=== PATIENT | female | born 1960 | race Caucasian/White ===

== ENCOUNTER → 2019-01-18 10:22 | Outpatient (CLI) | payer BC, SELFPAY ==
[2018-12-28 10:51] VITALS: BMI 33.3
--- NOTE | 2019-01-18 10:23 | NM_ITS ---
CLINICAL: 88-year-old female with reported history of carcinoma of the breast. WHOLE BODY 99m Tc MDP RADIONUCLIDE BONE SCINTIGRAPHY COMPARISON: None available FINDINGS: Following the intravenous administration of 26.4 mCi of 99m Tc MDP, whole body bone images reveal: 1. Increased radiopharmaceutical concentration is identified in the 12th thoracic vertebra posteriorly on the right, fourth thoracic vertebra posteriorly on the left and right, glenohumeral compartments of both shoulders, the medial femoral patellofemoral compartments of both knees, both wrists, medial tibial compartment of the right knee, ankles bilaterally, right-left mid and forefoot. 2. The remaining skeletal structures are scintigraphically unremarkable with normal-appearing renal images and urinary bladder activity identified. An increase in tracer distribution is noted in the bilateral maxilla most consistent with periodontal disease and/or periostitis. NM/Bone Scan Whole Body IMPRESSION: 1. The increase in radiopharmaceutical concentration defined in the thoracic spine, bilateral shoulders, right and left knees, wrist articulations bilaterally, the right knee, right-left ankles, the bilateral mid and forefoot is commensurate with degenerative arthritis. 2. There is no definitive scintigraphic evidence of skeletal metastatic disease on the current examination. Electronically Signed: Isak Shaw DO at 10:49 EDT Tel , Service support ,
== END ==
PROVIDERS: Family Provider Family Medicine; PCP Family Medicine; Referring Provider Internal Medicine Medical Oncology; Visit Provider Internal Medicine Medical Oncology
DX: Z85.3 Personal history of malignant neoplasm of breast (principal)
CPT/HCPCS: 78306

== ENCOUNTER 2020-07-12 14:00 | Outpatient (RCR) | payer BC, SELFPAY ==
[2019-07-27 13:32] VITALS: BMI 33.3
== END 2020-07-15 23:59 ==
LOC: DC 14:00
PROVIDERS: PCP Family Medicine; Visit Provider Family Medicine
DX: Z71.3 Dietary counseling and surveillance (principal); E11.9 Type 2 diabetes mellitus without complications
CPT/HCPCS: G0108

== ENCOUNTER 2020-08-08 14:30 | Outpatient (RCR) | payer BC, SELFPAY ==
[2019-07-27 13:32] VITALS: BMI 33.3
== END 2020-08-14 23:59 ==
LOC: DC 14:30
PROVIDERS: PCP Family Medicine; Visit Provider Family Medicine
DX: Z71.3 Dietary counseling and surveillance (principal); E11.9 Type 2 diabetes mellitus without complications
CPT/HCPCS: 97802; 97803; G0108

== ENCOUNTER 2020-08-17 09:30 | Outpatient (RCR) | payer BC, SELFPAY ==
[2019-07-27 13:32] VITALS: BMI 33.3
== END 2020-09-14 23:59 ==
LOC: DC 09:30
PROVIDERS: PCP Family Medicine; Visit Provider Family Medicine
DX: Z71.3 Dietary counseling and surveillance (principal); E11.9 Type 2 diabetes mellitus without complications
CPT/HCPCS: G0109

== ENCOUNTER 2020-09-28 13:30 | Outpatient (RCR) | payer BC, SELFPAY ==
[2019-07-27 13:32] VITALS: BMI 33.3
== END 2020-10-15 23:59 ==
LOC: DC 13:30
PROVIDERS: PCP Family Medicine; Visit Provider Family Medicine
DX: Z71.3 Dietary counseling and surveillance (principal); E11.9 Type 2 diabetes mellitus without complications
CPT/HCPCS: G0109

== ENCOUNTER 2020-11-16 14:44 | Outpatient (RCR) | payer BC, SELFPAY ==
[2019-07-27 13:32] VITALS: BMI 33.3
== END 2020-12-13 23:59 ==
LOC: DC 14:44
PROVIDERS: PCP Family Medicine; Visit Provider Family Medicine
DX: Z71.3 Dietary counseling and surveillance (principal); E11.9 Type 2 diabetes mellitus without complications
CPT/HCPCS: G0109

== ENCOUNTER 2021-02-15 10:51 | Outpatient (RCR) | payer BC, SELFPAY ==
[2019-07-27 13:32] VITALS: BMI 33.3
== END 2021-02-15 23:59 | disposition home or self-care (01) ==
LOC: DC 10:51
PROVIDERS: PCP Family Medicine; Visit Provider Family Medicine
DX: E11.9 Type 2 diabetes mellitus without complications (principal)
CPT/HCPCS: G0109

== ENCOUNTER → 2021-04-06 09:17 | Outpatient (CLI) | payer BC, SELFPAY ==
[2019-07-27 13:32] VITALS: BMI 33.3
[2021-04-06 12:26] LABS: Erythrocyte Sedimentation Rate 3 mm/hr (0-30)
[2021-04-06 12:39] LABS: CRP < 2.90 mg/L (0.0-3.0); Rheumatoid Factor < 10.0 IU/mL (<15)
[2021-04-08 08:22] LABS: ANTINUCLEAR ANTIBODIES DIRECT Positive (Negative)
[2021-04-09 07:24] LABS: CCP IgG Antibodies 4 units (0-19)
== END ==
PROVIDERS: PCP Family Medicine; Referring Provider Family Medicine; Visit Provider Family Medicine
DX: E11.9 Type 2 diabetes mellitus without complications (principal); M13.0 Polyarthritis, unspecified
CPT/HCPCS: 36415; 85652; 86038; 86140; 86200; 86431

== ENCOUNTER → 2021-04-20 09:39 | Outpatient (CLI) | payer BC, SELFPAY ==
[2019-07-27 13:32] VITALS: BMI 33.3
[2021-04-20 10:43] LABS: EXAGEN MAILED SPECIMEN
[2021-04-20 12:02] LABS: Color, Urine Yellow (Yellow); Glucose, Dipstick Normal (Normal); Ketone-Dipstick Negative (Negative); Leukocyte Esterase-Dipstick Negative /ul (Negative); Nitrite-Dipstick Negative (Negative); Occult Blood-Urine Negative /ul (Negative); Protein-Dipstick Negative (Negative); Urine Bilirubin Dipstick Negative (Negative); Urine Clarity Clear (Clear); Urine Urobilinogen Normal (Normal)
[2021-04-20 12:03] LABS: Absolute Lymphocyte Count 0.81 X10^3/uL (0.83-4.51); Absolute Neutrophil Count 2.6 X10^3/uL (2.0-7.7); Basophil# 0.05 X10^3/uL; Basophil% 1.3 % (0-1); Eosinophil# 0.09 X10^3/uL; Eosinophils% 2.3 % (0-5); Hematocrit 40.8 % (37-47); Hemoglobin 12.9 g/dL (12.0-15.0); Lymphocyte # 0.81 X10^3/ul (0.83-4.51); Lymphocyte % 20.6 % (19-41); Mean Corp Hgb Conc 31.6 g/dL (32-36); Mean Corpuscular Hgb 29.3 pg (27.0-32.0); Mean Corpuscular Volume 92.5 fL (81-99); Mean Platelet Vol. 11.5 fl (6.2-12.0); Monocyte# 0.35 X10^3/uL; Monocyte% 8.9 % (0-10); NRBC Flagged by Analyzer 0 % (0-5); Neutrophil # 2.63 X10^3/uL (2.7-7.7); Neutrophil % 66.9 % (47-70); Platelet Count 184 K/mm3 (150-450); RBC Distribution Width CV 13.8 % (11.6-14.6); RBC Distribution Width SD 47.1 fl (35.1-43.9); Red Blood Count 4.41 M/mm3 (4.2-5.4); White Blood Count 3.9 K/mm3 (4.4-11.0)
[2021-04-20 12:09] LABS: Partial Thromboplast Time 29.1 Seconds (24.1-36.2); Prothrombin Time (Protime)PT. 12.6 SECONDS (11.7-14.9)
[2021-04-20 12:17] LABS: Protein, Urine (Random) 6.9 mg/dL (<11.9); Protein:Creat Ratio 100 mg/g CRE (0-200)
[2021-04-20 12:26] LABS: ALB/GLOB Ratio 1.3 RATIO (0.9-2.4); AST(SGOT) 18 U/L (15-37); Alanine Aminotransfer ALT/SGPT 29 U/L (13-56); Alkaline Phosphatase 82 U/L (45-117); Anion Gap 5 (5-15); BUN 18 mg/dL (7-18); Calcium,Total 9.6 mg/dL (8.5-10.1); Chloride 109 mmol/L (98-107); Creatinine, Serum 0.75 mg/dL (0.55-1.02); EST Glomerular Filtration Rate 84 mL/min (>60); Est Glom Filt Rate - Afr Amer 101 mL/min (>60); Globulin 3.1 g/dL (2.2-4.2); Glucose 100 mg/dL (74-106); Potassium 4.2 mmol/L (3.5-5.1); Protein, Total 7.1 g/dL (6.4-8.2); Sodium Level 141 mmol/L (136-145)
[2021-04-22 07:42] LABS: Thrombin Time 17.3 sec (0.0-23.0)
[2021-04-22 14:07] LABS: Dilute Prothrombin Time (dPT) 40.6 sec (0.0-55.0); Dilute Russell Viper Venom 43.4 sec (0.0-47.0); Hexagonal Phase Phospholipid 0 sec (0-11); PTT-LA 32.2 sec (0.0-51.9); Thrombin Time 17.9 sec (0.0-23.0); dPT Confirm Ratio 1.19 Ratio (0.00-1.40)
[2021-04-22 15:02] LABS: Interpretation Comment: (.)
== END ==
PROVIDERS: PCP Family Medicine; Referring Provider Internal Medicine Rheumatology; Visit Provider Internal Medicine Rheumatology
DX: M06.4 Inflammatory polyarthropathy (principal); R76.8 Other specified abnormal immunological findings in serum; M19.041 Primary osteoarthritis, right hand; E11.9 Type 2 diabetes mellitus without complications; F41.9 Anxiety disorder, unspecified; M81.0 Age-related osteoporosis without current pathological fracture; E03.9 Hypothyroidism, unspecified; E78.5 Hyperlipidemia, unspecified; Z85.3 Personal history of malignant neoplasm of breast
CPT/HCPCS: 36415; 80053; 81002; 82570; 84156; 85025; 85598; 85610; 85670; 85730

== ENCOUNTER → 2021-07-30 08:27 | Outpatient (CLI) | payer BC, SELFPAY ==
[2021-07-30 10:06] LABS: Absolute Neutrophil Count 2.5 X10^3/uL (2.0-7.7); Basophil# 0.06 X10^3/uL; Basophil% 1.6 % (0-1); Eosinophil# 0.11 X10^3/uL; Eosinophils% 2.9 % (0-5); Hematocrit 39.7 % (37-47); Lymphocyte % 20.9 % (19-41); Mean Corp Hgb Conc 32.7 g/dL (32-36); Mean Corpuscular Hgb 29.4 pg (27.0-32.0); Mean Corpuscular Volume 89.8 fL (81-99); Mean Platelet Vol. 11.1 fl (6.2-12.0); Monocyte# 0.41 X10^3/uL; Monocyte% 10.7 % (0-10); NRBC Flagged by Analyzer 0 % (0-5); Neutrophil # 2.45 X10^3/uL (2.7-7.7); Neutrophil % 63.9 % (47-70); Platelet Count 177 K/mm3 (150-450); RBC Distribution Width SD 46.3 fl (35.1-43.9); Red Blood Count 4.42 M/mm3 (4.2-5.4); White Blood Count 3.8 K/mm3 (4.4-11.0)
[2021-07-30 10:23] LABS: Hemoglobin A1c 5.8 % (3.8-5.6)
[2021-07-30 10:39] LABS: ALB/GLOB Ratio 1.1 RATIO (0.9-2.4); AST(SGOT) 15 U/L (15-37); Alanine Aminotransfer ALT/SGPT 25 U/L (13-56); Albumin, Serum 3.7 g/dL (3.2-5.0); Alkaline Phosphatase 65 U/L (45-117); Anion Gap 5 (5-15); BUN 16 mg/dL (7-18); BUN/Creat Ratio 16.2 RATIO (10-20); Calcium,Total 9.4 mg/dL (8.5-10.1); Chloride 108 mmol/L (98-107); Cholesterol 128 mg/dL (200); Creatinine, Serum 0.99 mg/dL (0.55-1.02); EST Glomerular Filtration Rate 61 mL/min (>60); Est Glom Filt Rate - Afr Amer 74 mL/min (>60); Globulin 3.3 g/dL (2.2-4.2); Glucose 117 mg/dL (74-106); High Density Lipoprotein 53 mg/dL; Potassium 3.9 mmol/L (3.5-5.1); Sodium Level 140 mmol/L (136-145); T4 Free Direct 1.24 ng/dL (0.76-1.46); Thyroid Stim Hormone (TSH) 0.45 uIU/mL (0.358-3.74); Triglycerides 72 mg/dL; Very Low Density Lipoprotein 14 mg/dL (5-40)
== END ==
PROVIDERS: PCP Family Medicine; Referring Provider Family Medicine; Visit Provider Family Medicine
DX: E11.9 Type 2 diabetes mellitus without complications (principal); E03.9 Hypothyroidism, unspecified; E78.5 Hyperlipidemia, unspecified; M06.4 Inflammatory polyarthropathy; Z79.899 Other long term (current) drug therapy; R76.8 Other specified abnormal immunological findings in serum; M19.041 Primary osteoarthritis, right hand; F41.9 Anxiety disorder, unspecified; M81.0 Age-related osteoporosis without current pathological fracture; Z85.3 Personal history of malignant neoplasm of breast
CPT/HCPCS: 36415; 80053; 80061; 83036; 84439; 84443; 85025

== ENCOUNTER 2021-10-31 13:12 | Outpatient (CLI) | payer BC, SELFPAY ==
[2021-10-31 15:04] LABS: Absolute Lymphocyte Count 0.94 X10^3/uL (0.83-4.51); Absolute Neutrophil Count 2.7 X10^3/uL (2.0-7.7); Basophil# 0.06 X10^3/uL; Basophil% 1.4 % (0-1); Eosinophil# 0.08 X10^3/uL; Eosinophils% 1.9 % (0-5); Hematocrit 40.3 % (37-47); Hemoglobin 13.3 g/dL (12.0-15.0); Lymphocyte # 0.94 X10^3/ul (0.83-4.51); Lymphocyte % 22.4 % (19-41); Mean Corpuscular Hgb 30.6 pg (27.0-32.0); Mean Corpuscular Volume 92.6 fL (81-99); Mean Platelet Vol. 11.3 fl (6.2-12.0); Monocyte# 0.38 X10^3/uL; NRBC Flagged by Analyzer 0 % (0-5); Neutrophil # 2.73 X10^3/uL (2.7-7.7); Neutrophil % 65.1 % (47-70); Platelet Count 194 K/mm3 (150-450); RBC Distribution Width CV 13.4 % (11.6-14.6); RBC Distribution Width SD 46.5 fl (35.1-43.9); Red Blood Count 4.35 M/mm3 (4.2-5.4); White Blood Count 4.2 K/mm3 (4.4-11.0)
[2021-10-31 15:34] LABS: ALB/GLOB Ratio 1.2 RATIO (0.9-2.4); AST(SGOT) 18 U/L (15-37); Alanine Aminotransfer ALT/SGPT 24 U/L (13-56); Albumin, Serum 3.8 g/dL (3.2-5.0); Alkaline Phosphatase 74 U/L (45-117); Anion Gap 6 (5-15); BUN 18 mg/dL (7-18); Calcium,Total 9.5 mg/dL (8.5-10.1); Chloride 107 mmol/L (98-107); EST Glomerular Filtration Rate 68 mL/min (>60); Est Glom Filt Rate - Afr Amer 82 mL/min (>60); Globulin 3.1 g/dL (2.2-4.2); Glucose 118 mg/dL (74-106); Potassium 3.9 mmol/L (3.5-5.1); Protein, Total 6.9 g/dL (6.4-8.2); Sodium Level 139 mmol/L (136-145)
== END 2021-10-31 23:59 | disposition home or self-care (01) ==
LOC: MTLAB 13:14
PROVIDERS: PCP Family Medicine; Referring Provider Internal Medicine Rheumatology; Visit Provider Internal Medicine Rheumatology
DX: M06.4 Inflammatory polyarthropathy (principal); E11.9 Type 2 diabetes mellitus without complications; Z79.899 Other long term (current) drug therapy; R76.8 Other specified abnormal immunological findings in serum; M19.041 Primary osteoarthritis, right hand; F41.9 Anxiety disorder, unspecified; M81.0 Age-related osteoporosis without current pathological fracture; E03.9 Hypothyroidism, unspecified; E78.5 Hyperlipidemia, unspecified; Z85.3 Personal history of malignant neoplasm of breast
CPT/HCPCS: 36415; 80053; 85025

== ENCOUNTER → 2022-05-01 | Outpatient (CLI) | payer BC, SELFPAY ==
[2022-05-01 15:30] LABS: Absolute Lymphocyte Count 0.77 X10^3/uL (0.83-4.51); Absolute Neutrophil Count 2.2 X10^3/uL (2.0-7.7); Basophil# 0.04 X10^3/uL; Basophil% 1.2 % (0-1); Eosinophils% 2.9 % (0-5); Hematocrit 38.4 % (37-47); Hemoglobin 12.4 g/dL (12.0-15.0); Lymphocyte # 0.77 X10^3/ul (0.83-4.51); Lymphocyte % 22.3 % (19-41); Mean Corp Hgb Conc 32.3 g/dL (32-36); Mean Corpuscular Volume 89.7 fL (81-99); Mean Platelet Vol. 12.7 fl (6.2-12.0); Monocyte% 8.7 % (0-10); NRBC Flagged by Analyzer 0 % (0-5); Neutrophil # 2.23 X10^3/uL (2.7-7.7); Neutrophil % 64.6 % (47-70); POSITIVE COUNT YES; Platelet Count 112 K/mm3 (150-450); RBC Distribution Width CV 13.3 % (11.6-14.6); RBC Distribution Width SD 43.8 fl (35.1-43.9); Red Blood Count 4.28 M/mm3 (4.2-5.4); White Blood Count 3.5 K/mm3 (4.4-11.0)
[2022-05-01 15:33] LABS: Differential Indicated SCAN CRITERIA MET
[2022-05-01 15:40] LABS: ALB/GLOB Ratio 1.2 RATIO (0.9-2.4); AST(SGOT) 18 U/L (15-37); Alanine Aminotransfer ALT/SGPT 22 U/L (13-56); Albumin, Serum 3.7 g/dL (3.2-5.0); Alkaline Phosphatase 72 U/L (45-117); Anion Gap 6 (5-15); BUN 19 mg/dL (7-18); BUN/Creat Ratio 20.3 RATIO (10-20); Calcium,Total 9.5 mg/dL (8.5-10.1); Chloride 109 mmol/L (98-107); Creatinine, Serum 0.94 mg/dL (0.55-1.02); EST Glomerular Filtration Rate 65 mL/min (>60); Est Glom Filt Rate - Afr Amer 78 mL/min (>60); Globulin 3.1 g/dL (2.2-4.2); Glucose 113 mg/dL (74-106); Potassium 3.9 mmol/L (3.5-5.1); Protein, Total 6.8 g/dL (6.4-8.2); Sodium Level 140 mmol/L (136-145)
[2022-05-01 15:59] LABS: Differential Comment SCANNED
== END | disposition home or self-care (01) ==
LOC: MTLAB 13:21
PROVIDERS: PCP Family Medicine; Referring Provider Internal Medicine Rheumatology; Visit Provider Internal Medicine Rheumatology
DX: M06.4 Inflammatory polyarthropathy (principal); E11.9 Type 2 diabetes mellitus without complications; Z79.899 Other long term (current) drug therapy; R76.8 Other specified abnormal immunological findings in serum; M19.041 Primary osteoarthritis, right hand; F41.9 Anxiety disorder, unspecified; M81.0 Age-related osteoporosis without current pathological fracture; E03.9 Hypothyroidism, unspecified; E78.5 Hyperlipidemia, unspecified; Z85.3 Personal history of malignant neoplasm of breast
CPT/HCPCS: 36415; 80053; 85025

== ENCOUNTER → 2022-10-23 | Outpatient (CLI) | payer BC, SELFPAY ==
[2022-10-23 10:12] LABS: Absolute Lymphocyte Count 0.85 X10^3/uL (0.83-4.51); Absolute Neutrophil Count 2.3 X10^3/uL (2.0-7.7); Basophil# 0.07 X10^3/uL; Basophil% 1.8 % (0-1); Eosinophil# 0.22 X10^3/uL; Eosinophils% 5.7 % (0-5); Hematocrit 40.7 % (37-47); Hemoglobin 12.7 g/dL (12.0-15.0); Lymphocyte # 0.85 X10^3/ul (0.83-4.51); Lymphocyte % 21.9 % (19-41); Mean Corp Hgb Conc 31.2 g/dL (32-36); Mean Corpuscular Hgb 28.7 pg (27.0-32.0); Mean Corpuscular Volume 91.9 fL (81-99); Mean Platelet Vol. 11.1 fl (6.2-12.0); Monocyte# 0.44 X10^3/uL; Monocyte% 11.3 % (0-10); NRBC Flagged by Analyzer 0 % (0-5); Platelet Count 206 K/mm3 (150-450); RBC Distribution Width CV 14.1 % (11.6-14.6); RBC Distribution Width SD 48.1 fl (35.1-43.9); Red Blood Count 4.43 M/mm3 (4.2-5.4); White Blood Count 3.9 K/mm3 (4.4-11.0)
[2022-10-23 10:36] LABS: Microalbumin,Random Urine 16.7 mg/L (NO RANGE EST.); Microalbumin:Creatinine Ratio 18.5 mg/g CRE (<30 mg/g CRE)
[2022-10-23 10:52] LABS: ALB/GLOB Ratio 1.2 RATIO (0.9-2.4); AST(SGOT) 15 U/L (15-37); Alanine Aminotransfer ALT/SGPT 22 U/L (13-56); Albumin, Serum 3.7 g/dL (3.2-5.0); Alkaline Phosphatase 88 U/L (45-117); Anion Gap 7 (5-15); BUN 17 mg/dL (7-18); BUN/Creat Ratio 18.9 RATIO (10-20); Calcium,Total 9.5 mg/dL (8.5-10.1); Chloride 112 mmol/L (98-107); Cholesterol 141 mg/dL (200); EST Glomerular Filtration Rate 68 mL/min (>60); Est Glom Filt Rate - Afr Amer 82 mL/min (>60); Globulin 3.2 g/dL (2.2-4.2); Glucose 147 mg/dL (74-106); High Density Lipoprotein 56 mg/dL; Potassium 3.9 mmol/L (3.5-5.1); Protein, Total 6.9 g/dL (6.4-8.2); Sodium Level 144 mmol/L (136-145); T4 Free Direct 1.37 ng/dL (0.76-1.46); Thyroid Stim Hormone (TSH) 0.48 uIU/mL (0.358-3.74); Triglycerides 123 mg/dL; Very Low Density Lipoprotein 25 mg/dL (5-40)
== END | disposition home or self-care (01) ==
PROVIDERS: PCP Family Medicine; Referring Provider Internal Medicine Rheumatology; Visit Provider Internal Medicine Rheumatology
DX: M06.4 Inflammatory polyarthropathy (principal); E11.9 Type 2 diabetes mellitus without complications; R76.8 Other specified abnormal immunological findings in serum; M19.041 Primary osteoarthritis, right hand; F32.A Depression, unspecified; M19.042 Primary osteoarthritis, left hand; F41.9 Anxiety disorder, unspecified; M81.0 Age-related osteoporosis without current pathological fracture; E03.9 Hypothyroidism, unspecified; E78.5 Hyperlipidemia, unspecified; Z79.899 Other long term (current) drug therapy; Z85.3 Personal history of malignant neoplasm of breast
CPT/HCPCS: 36415; 80053; 80061; 82043; 82570; 84439; 84443; 85025

== ENCOUNTER → 2022-12-16 | Outpatient (CLI) | payer BC, SELFPAY ==
--- NOTE | 2022-12-16 13:05 | RAD_ITS ---
EXAM: XR RIGHT HAND COMPLETE, 3 OR MORE VIEWS CLINICAL INDICATION: PAIN PAIN TECHNIQUE: Frontal, lateral and oblique views of the right hand. This report was created using [employer] report generation technology. COMPARISON: X-ray left hand 12/16/2022. FINDINGS: BONES/JOINTS: There is degenerative arthrosis of multiple interphalangeal joints, with most severe involvement of the second DIP joint. There is mild degenerative arthrosis of the first carpometacarpal joint as well as the navicular-multangular joints. No acute fracture. No subluxation. Normal alignment. No sclerotic or destructive changes observed. SOFT TISSUES: Unremarkable. No soft tissue swelling or gas. No radiopaque foreign body. RAD/Hand Min 3 Views IMPRESSION: 1. Degenerative changes, as above. 2. No demonstrated fracture, dislocation, or destructive osseous lesion. Electronically Signed: Yung Fisher MD at 7:36 EDT Reading Location ID and State: [facility] / [place] , Service support ,
--- NOTE | 2022-12-16 13:05 | RAD_ITS ---
STUDY: X-RAY - LEFT HAND REASON FOR EXAM: Female, 62 years old. Pain. TECHNIQUE: 3 view(s) of the hand. COMPARISON: None. FINDINGS: Osteopenia. Moderate arthrosis of the radial carpal row. Moderate arthrosis of the first CMC joint. Moderate arthrosis of the MCP and IP joints. Normal soft tissues. RAD/Hand Min 3 Views IMPRESSION: Osteopenia with osteoarthritic changes as described. No acute abnormality, chondrocalcinosis or erosive changes. Electronically Signed: Agusto Rojas, at 9:42 EDT ,
== END | disposition home or self-care (01) ==
PROVIDERS: PCP Family Medicine; Referring Provider Family Medicine; Visit Provider Family Medicine
DX: M06.4 Inflammatory polyarthropathy (principal)
CPT/HCPCS: 73130

== ENCOUNTER → 2022-12-23 | Outpatient (CLI) | payer BC, SELFPAY | END | disposition home or self-care (01) | PROVIDERS: PCP Family Medicine | DX: N39.0 Urinary tract infection, site not specified (principal) | CPT/HCPCS: 87086; 87088; 87186 ==

== ENCOUNTER → 2023-03-28 | Outpatient (CLI) | payer BC, SELFPAY ==
[2023-03-28 16:17] LABS: Absolute Lymphocyte Count 0.55 X10^3/uL (0.83-4.51); Basophil# 0.06 X10^3/uL; Eosinophils% 3.3 % (0-5); Hematocrit 38.3 % (37-47); Hemoglobin 12.1 g/dL (12.0-15.0); Lymphocyte # 0.55 X10^3/ul (0.83-4.51); Lymphocyte % 18.4 % (19-41); Mean Corp Hgb Conc 31.6 g/dL (32-36); Mean Corpuscular Hgb 28.8 pg (27.0-32.0); Mean Corpuscular Volume 91.2 fL (81-99); Mean Platelet Vol. 11.4 fl (6.2-12.0); Monocyte# 0.27 X10^3/uL; NRBC Flagged by Analyzer 0 % (0-5); POSITIVE DIFFERENTIAL YES; Platelet Count 207 K/mm3 (150-450); RBC Distribution Width CV 13.7 % (11.6-14.6); RBC Distribution Width SD 46.4 fl (35.1-43.9)
[2023-03-28 16:22] LABS: Differential Indicated SCAN CRITERIA MET
[2023-03-28 16:44] LABS: Differential Comment SCANNED
[2023-03-28 16:58] LABS: ALB/GLOB Ratio 1.1 RATIO (0.9-2.4); AST(SGOT) 18 U/L (15-37); Alanine Aminotransfer ALT/SGPT 24 U/L (13-56); Albumin, Serum 3.6 g/dL (3.2-5.0); Alkaline Phosphatase 101 U/L (45-117); Anion Gap 6 (5-15); BUN 19 mg/dL (7-18); BUN/Creat Ratio 19.8 RATIO (10-20); Calcium,Total 9.7 mg/dL (8.5-10.1); Chloride 110 mmol/L (98-107); Creatinine, Serum 0.96 mg/dL (0.55-1.02); EST Glomerular Filtration Rate 63 mL/min (>60); Est Glom Filt Rate - Afr Amer 76 mL/min (>60); Globulin 3.4 g/dL (2.2-4.2); Glucose 103 mg/dL (74-106); Potassium 3.9 mmol/L (3.5-5.1); Sodium Level 141 mmol/L (136-145)
[2023-04-01 12:07] LABS: Pathologist Review Reviewed
== END | disposition home or self-care (01) ==
LOC: MTLAB 11:09
PROVIDERS: PCP Family Medicine; Referring Provider Internal Medicine Rheumatology; Visit Provider Internal Medicine Rheumatology
DX: Z79.899 Other long term (current) drug therapy (principal); R76.8 Other specified abnormal immunological findings in serum
CPT/HCPCS: 36415; 80053; 85025

== ENCOUNTER 2023-04-27 00:18 | Emergency (ER) | payer BC, SELFPAY ==
[2023-04-27 00:21] VITALS: BP 139/74; PULSE 79; RESP 18; TEMP 38.4; O2SAT 98; BMI 37.5
[2023-04-27 00:23] VITALS: BP 139/76; PULSE 80; RESP 16; TEMP 38.4; O2SAT 98
--- NOTE | 2023-04-27 00:54 | RAD_ITS ---
INDICATION: fever EXAMINATION/TECHNIQUE: X-RAY - XR Chest 1 View AP portable. 1:00 AM COMPARISON: FINDINGS: LINES/DEVICES: None. LUNGS: No consolidation. No pneumothorax. MEDIASTINUM: Unremarkable. CARDIAC SILHOUETTE: Not enlarged. BONES AND SOFT TISSUES: No acute abnormalities. Mild curvature of the spine. RAD/Chest 1 View (Portable) IMPRESSION: No evidence of active intrathoracic disease. Electronically Signed: Debra Erazo MD at 1:58 EDT ,
[2023-04-27] MEDS: Acetaminophen 500 MG Tablet 1000 MG PO (01:19)
[2023-04-27] MEDS: Ondansetron 4 MG/2 ML Vial IV (01:21)
[2023-04-27] MEDS: 0.9% Normal Saline 1,000 ML 999 ML IV (01:21)
[2023-04-27 01:24] LABS: Absolute Neutrophil Count 2.3 X10^3/uL (2.0-7.7); Basophil# 0.02 X10^3/uL; Basophil% 0.8 % (0-1); Eosinophil# 0.03 X10^3/uL; Eosinophils% 1.2 % (0-5); Hematocrit 35.4 % (37-47); Hemoglobin 11.1 g/dL (12.0-15.0); Lymphocyte % 7.9 % (19-41); Mean Corp Hgb Conc 31.4 g/dL (32-36); Mean Corpuscular Hgb 28.2 pg (27.0-32.0); Mean Corpuscular Volume 90.1 fL (81-99); Mean Platelet Vol. 10.5 fl (6.2-12.0); Monocyte# 0.02 X10^3/uL; Monocyte% 0.8 % (0-10); NRBC Flagged by Analyzer 0 % (0-5); Neutrophil # 2.26 X10^3/uL (2.7-7.7); Neutrophil % 88.9 % (47-70); POSITIVE DIFFERENTIAL YES; Platelet Count 185 K/mm3 (150-450); RBC Distribution Width CV 14.1 % (11.6-14.6); Red Blood Count 3.93 M/mm3 (4.2-5.4); White Blood Count 2.5 K/mm3 (4.4-11.0)
[2023-04-27 01:25] LABS: Differential Indicated SCAN CRITERIA MET
[2023-04-27 01:43] LABS: AST(SGOT) 17 U/L (15-37); Alanine Aminotransfer ALT/SGPT 18 U/L (13-56); Albumin, Serum 3.3 g/dL (3.2-5.0); Alkaline Phosphatase 86 U/L (45-117); Anion Gap 7 (5-15); BUN 24 mg/dL (7-18); BUN/Creat Ratio 22.9 RATIO (10-20); Bilirubin, Direct 0.17 mg/dL (0.00-0.30); Calcium,Total 9.3 mg/dL (8.5-10.1); Chloride 107 mmol/L (98-107); Creatinine, Serum 1.05 mg/dL (0.55-1.02); EST Glomerular Filtration Rate 57 mL/min (>60); Est Glom Filt Rate - Afr Amer 68 mL/min (>60); Estimated Creatinine Clearance 46.54 ml/min; Globulin 3.3 g/dL (2.2-4.2); Glucose 184 mg/dL (74-106); Lipase 36 U/L (13-75); Magnesium 1.8 mg/dL (1.6-2.6); Potassium 4.3 mmol/L (3.5-5.1); Protein, Total 6.6 g/dL (6.4-8.2); Sodium Level 138 mmol/L (136-145)
[2023-04-27 02:23] VITALS: BP 125/62; PULSE 82; RESP 18; TEMP 39; O2SAT 96
[2023-04-27] MEDS: Ibuprofen 600 MG Tablet PO (02:29)
[2023-04-27 02:34] LABS: Mucous, Urine 0 SEEN /hpf (<or=2+); Red Blood Cells-Urine 0 SEEN /hpf (0-5); Squamous Epithelial Cells - UA 0 SEEN /hpf (5-10); White Blood Cells 0 SEEN /hpf (0-5)
[2023-04-27 02:35] LABS: Color, Urine Yellow (Yellow); Glucose, Dipstick Normal (Normal); Ketone-Dipstick Negative (Negative); Leukocyte Esterase-Dipstick 25 /ul (Negative); Nitrite-Dipstick Negative (Negative); Occult Blood-Urine 25 /ul (Negative); Protein-Dipstick 15 mg/dl (Negative); Urine Bilirubin Dipstick Negative (Negative); Urine Clarity Clear (Clear); Urine Urobilinogen Normal (Normal)
[2023-04-27 02:41] LABS: Bacteria RARE /hpf (None Seen)
[2023-04-27 03:11] VITALS: BP 123/68; PULSE 79; RESP 18; O2SAT 98
--- NOTE | 2023-04-27 03:11 | EDS_ITS ---
HPI History of Present Illness Chief Complaint: General Illness Narrative Narrative: Patient is a 62-year-old female with past medical history of breast cancer as well as diabetes. She states that she went to bed feeling normal and then awoke with shaking chills to the point where she was shaking the bed. She states however she was awake and alert for this entire time. She states she got very nauseous with this but denies any vomiting. She denies any abdominal pain diarrhea or dysuria. However because of the shaking she was concerned she could have developed a potential seizure and therefore presents for evaluation [facility] Medical History (Updated 04/27/23 @ 06:[address] Van Alexandra, DO) Breast cancer, left Depression Diabetes Hypothyroid Shingles Sjogren syndrome with peripheral nervous system involvement Home Medications acetaminophen 500 mg tablet 500 mg PO Q6H PRN Pain 11/26/18 [History Last Taken Unknown] bupropion HCl 300 mg 24 hr tablet, extended release 300 mg PO DAILY 11/26/18 [History Last Taken Unknown] calcium carb-ergocalciferol (vit D2) 250 mg (625 mg)-125 unit tablet (Oyster Shell Calcium-Vit D2) 1 ea PO DAILY 11/26/18 [History Last Taken Unknown] cetirizine 10 mg tablet (Zyrtec) 10 mg PO DAILY 11/26/18 [History Last Taken Unknown] escitalopram oxalate 10 mg tablet 20 mg PO DAILY 11/26/18 [History Last Taken Un known] fish oil-dha-epa 1,200 mg-144 mg-216 mg capsule 2 ea PO DAILY 11/26/18 [History Last Taken Unknown] levothyroxine 100 mcg tablet (Levo-T) 100 mcg PO DAILY 11/26/18 [History Last Taken Unknown] Fluticasone Otc 50 mcg DAILY 11/30/18 [History Last Taken Unknown] alendronate 70 mg tablet 70 mg PO QWEEK 07/27/19 [History Last Taken Unknown] cholecalciferol (vitamin D3) 25 mcg (1,000 unit) tablet 1,000 unit PO DAILY 07/27/20 [History Last Taken Unknown] losartan 25 mg tablet 25 mg PO DAILY 07/27/20 [History Last Taken Unknown] metformin 500 mg tablet 500 mg PO DAILY 07/27/20 [History Last Taken Unknown] atorvastatin 10 mg tablet 10 mg PO QHS 04/27/23 [History Last Taken Unknown] clobetasol 0.05 % scalp solution 1 applic topical .week 04/27/23 [History Last Taken Unknown] hydroxychloroquine 200 mg tablet 200 mg PO BID 04/27/23 [History Last Taken Unknown] ondansetron 4 mg disintegrating tablet 4 mg PO TID PRN nausea and vomiting #21 tabs 04/27/23 [Rx Last Taken Unknown] sodium fluoride 1.1 %-potassium nitrate 5 % dental paste (PreviDent 5000 Sensitive) 1 applic dental DAILY 04/27/23 [History Last Taken Unknown] Allergy/AdvReac Type Severity Reaction Status Date / Time amoxicillin Allergy Hives Verified 04/27/23 00:20 oxycodone Allergy confusion/ Verified 04/27/23 00:20 nausea Penicillins Allergy hives/rash Verified 04/27/23 00:20 Family History (Updated 07/27/20 @ 14:42 by Christen Mahajan RN) Sister Breast cancer Diabetes Aunt Breast cancer Mother Bipolar 1 disorder Mother Lung cancer Father CHF (congestive heart failure) Emphysema lung COPD (chronic obstructive pulmonary disease) Hypertension Surgical History (Updated 07/27/20 @ 14:[address] Enrique Branham MD) H/O inguinal hernia repair History of lumpectomy of left breast Social History Smoking Status: Never smoker ROS ROS ED Constitutional Constitutional ED: Reports chills and fever(s) ENT ENT ED: Denies sore throat Cardiovascular Cardiovascular: Denies chest pain Respiratory/Chest Respiratory/Chest: Denies cough or dyspnea Gastrointestinal Gastrointestinal: Reports nausea; Denies abdominal pain, diarrhea or vomiting Genitourinary Genitourinary ED: Denies dysuria or hematuria Musculoskeletal Musculoskeletal: Denies myalgias Integumentary Denies rash Neurologic Neurologic: Denies headache(s) Hematologic/Lymphatic Hematologic/Lymphatic: Denies easy bleeding or easy bruising EXAM Physical Exam Const Vital Signs: 04/27/23 00:21 04/27/23 00:23 04/27/23 01:35 Temperature 101.1 F H 101.1 F H Temperature Source Oral Oral Pulse Rate 79 80 Respiratory Rate 18 16 Respiratory Pattern Normal Blood Pressure 139/74 H 139/76 H Blood Pressure Mean 95 97 Pulse Ox 98 98 Oxygen Delivery Method Room Air Room Air 04/27/23 02:23 04/27/23 02:23 04/27/23 03:11 Temperature 102.2 F H 102.2 F H Temperature Source Oral Oral Pulse Rate 82 79 Respiratory Rate 18 18 Respiratory Pattern Blood Pressure 125/62 H 123/68 H Blood Pressure Mean 83 Pulse Ox 96 98 Oxygen Delivery Method Room Air Positive well nourished, well developed and obese General Appearance ED: well developed Nutritional Appearance: obese HEENT Reports moist mucous membranes HEENT Narrative: No tongue or cheek biting noted No signs of infection in the posterior pharynx Eyes PERRL and EOMs intact bilaterally General Eye ED: Negative for scleral icterus Neck supple Neck Narrative: No nuchal rigidity or meningeal signs present Chest Wall palpation of chest normal Resp normal respiratory effort and clear to auscultation bilaterally Resp Narrative: No nasal flaring retractions tachypnea or accessory muscle use Cardio regular rate and regular rhythm Rate: other Other Details: Radial and carotid pulses are equal and symmetric GI normal to inspection, nondistended, normoactive bowel sounds, non-tender, non- distended and no masses GI Narrative: No voluntary guarding or rigidity. No pulsatile mass or fluid wave. Auscultation: normoactive bowel sounds Palpation: soft Back/Spine no CVA tenderness Extremity normal to inspection Neuro oriented x3, CN's II-XII intact bilaterally and no sensory deficits noted Sensorium / Orientation: alert Motor Exam: strength 5/5 throughout Psych mental status grossly normal Skin no rashes or lesions noted General Skin Exam: Negative for jaundice MDM MDM MDM Narrative Medical decision making narrative: Patient presented to the ER normotensive but was febrile. She reported sudden onset shaking but was awake and alert. She had concern for seizure activity but as she is awake and alert this is not clinically correlate. Based on her nausea fever and shaking chills differential diagnosis is for viral syndrome versus gastroenteritis versus electrolyte derangement versus UTI or pneumonia. Secondary to this basic blood work is obtained. White cell count is slightly down at 2.5 which chart review reveals her baseline is 3-4 and therefore she is only down by approximately half a point which is not clinically concerning and her absolute neutrophil count is normal as well. Urine showed no sign of infection chest x-ray reveals no acute lung pathology. After patient was given IV hydration and Zofran nausea resolved and she reported feeling better after receiving Tylenol and ibuprofen. At this time he does not have physical exam findings to suggest meningitis and there are no soft tissue skin changes to suggest a secondary skin infection such as cellulitis or abscess. Therefore work-up indicates patient most likely has a viral infection and as she is hemodynamically stable without need for supplemental oxygen or vasopressors she can be discharged home History & Record Review Discussion w/independent historian: Patient and Significant other Lab Data Attestation: I reviewed the patient's lab results. Labs: Laboratory Results - last 24 hr 04/27/23 04/27/23 01:07 02:18 WBC 2.5 L RBC 3.93 L Hgb 11.1 L Hct 35.4 L MCV 90.1 MCH 28.2 MCHC 31.4 L RDW Std Deviation 47.0 H RDW Coeff of Home 14.1 Plt Count 185 MPV 10.5 Immature Gran % (Auto) 0.400 Neut % (Auto) 88.9 H Lymph % (Auto) 7.9 L [place] % (Auto) 0.8 Eos % (Auto) 1.2 Baso % (Auto) 0.8 Absolute Neuts (auto) 2.3 Absolute Lymphs (auto) 0.20 L Nucleated RBC % 0 Diff Path Review May foll Sodium 138 Potassium 4.3 Chloride 107 Carbon Dioxide 24.0 Anion Gap 7 BUN 24 H Creatinine 1.05 H Estim Creat Clear Calc 46.54 Est GFR (MDRD) Af Amer 68 Est GFR (MDRD) Non-Af 57 L BUN/Creatinine Ratio 22.9 H Glucose 184 H Calcium 9.3 Magnesium 1.8 Total Bilirubin 0.60 Direct Bilirubin 0.17 AST 17 ALT 18 Alkaline Phosphatase 86 Total Protein 6.6 Albumin 3.3 Globulin 3.3 Lipase 36 Urine Color Yellow Urine Clarity Clear Urine pH 6.0 Ur Specific [place] 1.020 Urine Protein 15 H Urine Glucose (UA) Normal Urine Ketones Negative Urine Occult Blood 25 H Urine Nitrite Negative Urine Bilirubin Negative Urine Urobilinogen Normal Ur Leukocyte Esterase 25 H Urine RBC 0 SEEN Urine WBC 0 SEEN Ur Squamous Epith Cells 0 SEEN Urine Bacteria RARE Urine Mucus 0 SEEN Radiography Diagnostic Testing: Clinical Impression(s) from Imaging Studies Chest X-Ray 04/27/23 00:54 IMPRESSION: No evidence of active intrathoracic disease. Electronically Signed: Debra Erazo MD at 1:58 EDT , Chest x-ray as interpreted by the emergency medicine physician reveals no acute infiltrate pneumothorax or pleural effusion Discharge Plan Triage Chief Complaint: General Illness ED Provider: Van Alexandra Dx/Rx/DC Orders Clinical Impression: Pyrexia, Viral illness, Diabetes Instructions: ED Fever Control (Adult), ED Viral Syndrome (Adult) Prescriptions: New ondansetron 4 mg tablet,disintegrating 4 mg PO TID PRN (Reason: nausea and vomiting) Qty: 21 0RF No Action escitalopram oxalate 10 MG tablet 20 mg PO DAILY bupropion HCl 300 MG tablet extended release 24 hr 300 mg PO DAILY cetirizine [Zyrtec] 10 MG tablet 10 mg PO DAILY acetaminophen 500 MG tablet 500 mg PO Q6H PRN (Reason: Pain) levothyroxine [Levo-T] 100 MCG tablet 100 mcg PO DAILY Oyster Shell Calcium-Vit D2 1 EACH tablet 1 ea PO DAILY fish oil-dha-epa 1 EACH capsule 2 ea PO DAILY Fluticasone Otc 50 mcg NASAL DAILY alendronate 70 MG tablet 70 mg PO QWEEK metformin 500 MG tablet 500 mg PO DAILY losartan 25 MG tablet 25 mg PO DAILY cholecalciferol (vitamin D3) 1,000 UNIT tablet 1,000 unit PO DAILY hydroxychloroquine 200 mg tablet 200 mg PO BID atorvastatin 10 mg tablet 10 mg PO QHS clobetasol 0.05 % solution 1 applic TOPICAL .week Patient Comments: APPLY SOLUTION TO AFFECTED AREAS OF THE SCALP NIGHTLY FOR 2 WEEKS, THEN 1-2 TIMES PER WEEK FOR MAINTENANCE Rx Instructions: twice a week sodium fluoride-pot nitrate [PreviDent 5000 Sensitive] 1.1-5 % paste 1 applic dental DAILY Primary Care Provider: Sarah Ng Referrals: Sarah Ng MD [Primary Care Provider] - Activity Restrictions/Additional Instructions: Your work-up today indicates you have a viral illness causing your fever. Symptoms for this will typically last 3 to 7 days. Continue to take naproxen and/or Tylenol for fever control and return to the ER should you have any further concerns or worsening of symptoms. Disposition Disposition: Home, Self Care Discharge Date/Time: 04/27/23 03:29
[2023-04-28 12:42] LABS: Pathologist Review Reviewed
== END 2023-04-27 03:29 | disposition home or self-care (01) ==
PROVIDERS: Emergency Provider Emergency Medicine; PCP Family Medicine; Visit Provider Emergency Medicine
DX: B34.9 Viral infection, unspecified (principal); E11.9 Type 2 diabetes mellitus without complications; Z85.3 Personal history of malignant neoplasm of breast; F32.A Depression, unspecified; E03.9 Hypothyroidism, unspecified; Z79.899 Other long term (current) drug therapy; Z79.84 Long term (current) use of oral hypoglycemic drugs; R50.9 Fever, unspecified
CPT/HCPCS: 71045; 80048; 80076; 81001; 83690; 83735; 85025; 87428; 96361; 96374; 99285; J7030; A4216; J2405

== ENCOUNTER → 2023-09-22 | Outpatient (CLI) | payer BC, SELFPAY ==
[2023-09-22 15:36] LABS: Absolute Neutrophil Count 2.6 X10^3/uL (2.0-7.7); Basophil# 0.06 X10^3/uL; Basophil% 1.5 % (0-1); Eosinophil# 0.21 X10^3/uL; Eosinophils% 5.3 % (0-5); Hematocrit 40.9 % (37-47); Hemoglobin 12.6 g/dL (12.0-15.0); Mean Corp Hgb Conc 30.8 g/dL (32-36); Mean Corpuscular Hgb 28.7 pg (27.0-32.0); Mean Corpuscular Volume 93.2 fL (81-99); Mean Platelet Vol. 10.9 fl (6.2-12.0); Monocyte% 7.5 % (0-10); NRBC Flagged by Analyzer 0 % (0-5); Neutrophil # 2.62 X10^3/uL (2.7-7.7); Neutrophil % 65.4 % (47-70); Platelet Count 184 K/mm3 (150-450); RBC Distribution Width CV 14.5 % (11.6-14.6); RBC Distribution Width SD 49.2 fl (35.1-43.9); Red Blood Count 4.39 M/mm3 (4.2-5.4)
[2023-09-22 16:08] LABS: ALB/GLOB Ratio 1.4 RATIO (0.9-2.4); AST(SGOT) 22 U/L (15-37); Alanine Aminotransfer ALT/SGPT 27 U/L (13-56); Albumin, Serum 3.9 g/dL (3.2-5.0); Alkaline Phosphatase 80 U/L (45-117); Anion Gap 5 (5-15); BUN 20 mg/dL (7-18); Calcium,Total 9.3 mg/dL (8.5-10.1); Chloride 111 mmol/L (98-107); Creatinine, Serum 0.95 mg/dL (0.55-1.02); EST Glomerular Filtration Rate 63 mL/min (>60); Est Glom Filt Rate - Afr Amer 76 mL/min (>60); Globulin 2.7 g/dL (2.2-4.2); Glucose 150 mg/dL (74-106); Potassium 4.3 mmol/L (3.5-5.1); Protein, Total 6.6 g/dL (6.4-8.2); Sodium Level 142 mmol/L (136-145)
== END | disposition home or self-care (01) ==
PROVIDERS: PCP Family Medicine; Referring Provider Internal Medicine Rheumatology; Visit Provider Internal Medicine Rheumatology
DX: M06.4 Inflammatory polyarthropathy (principal); E11.9 Type 2 diabetes mellitus without complications; Z79.899 Other long term (current) drug therapy; R76.8 Other specified abnormal immunological findings in serum
CPT/HCPCS: 36415; 80053; 85025

== ENCOUNTER → 2023-10-10 | Outpatient (CLI) | payer BC, SELFPAY ==
--- OUTSIDE RECORDS SUMMARY | 2023-10-10 09:04 | XMS RPT_ITS | CCD ---
Author Name Unknown Address [address] [place] [address] Organization [facility] Care Team Providers Care City Treasurer Name Role Phone INDIGO ANDERSON Primary Care Physician INDIGO ANDERSON Attending Unavailable INDIGO ANDERSON Primary Care Unavailable INDIGO ANDERSON Attending Unavailable INDIGO ANDERSON Primary Care Unavailable Allergies Allergy Classification Reported Allergen(s) Allergy Type Date of Onset Reaction(s) Facility (1 source) Acetaminophen / oxyCODONE; Translations: [acetaminophen-oxy codone] Drug Allergy Confusion [facility] (1 source) Amoxicillin; Translations: [amoxicillin] Drug Allergy Hives [facility] (1 source) Penicillin; Translations: [penicillin] Drug Allergy [facility] Medications Current Medications Medication Drug Class(es) Dates Sig (Normalized) Sig (Original) calcium carbonate 1250 mg / cholecalciferol 0.01 mg oral tablet (1 source) Vitamin D Start: 04-07-2019 take 1 tablet by mouth once daily calcium (as carbonate)-vitamin D 500 mg-400 intl units oral tablet Dose = 1 tab(s), Oral, qDay, # 300 tab(s), 0 Refill(s) Start Date: 04/07/19 Status: Ordered escitalopram 20 mg oral tablet (1 source) Serotonin Reuptake Inhibitor Start: 11-18-2019 Lexapro 20 mg oral tablet Dose : 20 mg = 1 tab(s), Oral, qDay, # 90 tab(s), 3 Refill(s), Pharmacy: [facility], Depression, 163, cm, 11/18/19 14:42:00 EST, Height, kg, 11/18/19 14:42:00 EST, Dosing Weight Start Date: 11/18/19 Status: Ordered Fish Oils (1 source) Start: 04-07-2019 Fish Oil 1200 mg oral capsule Dose : 1,200 mg = 1 cap(s), Oral, BID, # 60 cap(s), 0 Refill(s) Start Date: 04/07/19 Status: Ordered fluticasone propionate 0.05 mg/actuat metered dose nasal spray (1 source) Corticosteroid Start: 03-01-2020 take 1 dose nasal route twice daily fluticasone 50 mcg/inh NASAL spray Dose = 1 spray(s), Nostril, each, BID, 0 Refill(s) Start Date: 03/01/20 Status: Ordered levothyroxine sodium 0.1 mg oral tablet (1 source) l-Thyroxine Start: 11-18-2019 levothyroxine 100 mcg (0.1 mg) oral tablet Dose : 100 mcg = 1 tab(s), Oral, qDay, # 90 tab(s), 3 Refill(s), Pharmacy: [id number], Hypothyroid, 163, cm, 11/18/19 14:42:00 EST, Height, kg, 11/18/19 14:42:00 EST, Dosing Weight Start Date: 11/18/19 Status: Ordered lisinopril 5 mg oral tablet (1 source) Angiotensin Converting Enzyme Inhibitor Start: 03-08-2020 lisinopril 5 mg oral tablet Dose : 5 mg = 1 tab(s), Oral, qDay, # 90 tab(s), 1 Refill(s), Pharmacy: [facility], Type 2 diabetes mellitus not at goal, 162, cm, 03/08/20 15:29:00 EDT, Height, kg, 03/08/20 15:29:00 EDT, Dosing Weight Start Date: 03/08/20 Status: Ordered loratadine 10 mg oral tablet (1 source) Start: 03-01-2020 loratadine 10 mg oral tablet Dose : 10 mg = 1 tab(s), Oral, Every other day, # 15 tab(s), 0 Refill(s) Start Date: 03/01/20 Status: Ordered metFORMIN hydrochloride 500 mg oral tablet (1 source) Biguanide Start: 03-08-2020 metFORMIN 500 mg oral tablet, extended release Dose : 500 mg = 1 tab(s), Oral, qDay, # 90 tab(s), 1 Refill(s), Pharmacy: [facility], 162, cm, 03/08/20 15:29:00 EDT, Height, kg, 03/08/20 15:29:00 EDT, Dosing Weight Start Date: 03/08/20 Status: Ordered Multivitamin preparation (1 source) Start: 04-07-2019 take 1 tablet by mouth once daily Multivitamin Dose = 1 tab(s), Oral, Daily, 0 Refill(s) Start Date: 04/07/19 Status: Ordered Vitamin D3 (1 source) Start: 04-07-2019 Vitamin D3 Dose : 1,000 unit(s) = 1 tab(s), Oral, Daily, 0 Refill(s) Start Date: 04/07/19 Status: Ordered Completed/Discontinued Medications Medication Drug Class(es) Dates Sig (Normalized) Sig (Original) alendronic acid 70 mg oral tablet (1 source) Bisphosphonate Start: 07-22-2019 End: 10-14-2020 Fosamax 70 mg oral tablet Dose : 70 mg = 1 tab(s), Oral, qWeek, # 13 tab(s), 4 Refill(s), Pharmacy: [facility], Osteoporosis Start Date: 07/22/19 Stop Date: 10/14/20 Status: Ordered 24 hr buPROPion hydrochloride 300 mg extended release oral tablet (1 source) Aminoketone Start: 11-18-2019 End: 11-12-2020 take 1 tablet by mouth every hour, then take 1 tablet by mouth once daily Wellbutrin XL 300 mg/24 hours oral tablet, extended release Dose : 300 mg = 1 tab(s), Oral, qDay, # 90 tab(s), 3 Refill(s), Pharmacy: [facility], Depression, 163, cm, 11/18/19 14:42:00 EST, Height, kg, 11/18/19 14:42:00 EST, Dosing Weight Start Date: 11/18/19 Stop Date: 11/12/20 Status: Ordered Problems Problem Classification Problem Date Documented Da te Episodic/Chronic Cancer of breast (1 source) Malignant tumor of breast 04-07-2019 Chronic Diabetes mellitus with complications (1 source) Type II diabetes mellitus uncontrolled 03-08-2020 Chronic Diseases of mouth; excluding dental (2 sources) Oral lesion; Translations: [Ulcer of mouth] 06-15-2019 Episodic Disorders of lipid metabolism (1 source) Hyperlipidemia 03-08-2020 Chronic Mood disorders (1 source) Depressive disorder 04-07-2019 Chronic Mycoses (1 source) Candidiasis 03-01-2020 Episodic Osteoporosis (1 source) Osteoporosis 04-07-2019 Chronic Other bone disease and musculoskeletal deformities (1 source) Somatic dysfunction of sacral region 04-07-2019 Episodic Spondylosis; intervertebral disc disorders; other back problems (2 sources) Low back pain; Translations: [Spasm of back muscles] 04-07-2019 Episodic Thyroid disorders (1 source) Hypothyroidism 03-01-2020 Chronic Unclassified (5 sources) Patient encounter status 03-01-2020 Results Test Name Value Interpretation Reference Range Facil ity Encounters Encounter Date Encounter Type Care Provider Facility Start: 02-18-2023 ambulatory INDIGO ERIC Facility: B Start: 02-12-2023 End: 02-13-2023 ambulatory INDIGO MINIKHIL Facility:B Start: 02-12-2023 End: 02-12-2023 Patient encounter procedure INDIGO ANDERSON [facility] Procedures Date Procedure Procedure Detail Performing Clinician Start: 04-19-2013 Ganglion cyst of rig ht hand (disorder) INDIGO ANDERSON Start: 09-30-2012 Lumpectomy of breast CAVAZOS TAMIKA JUSTIN Immunizations Immunization Date Immunization Notes [facility] tetanus toxoid, redu taj diphtheria toxoid, and acellular pertussis vaccine, adsorbed [facility]O [facility] 04-05-2020 zoster vaccine recombinant [facility] [employer] 07-22-2019 influenza, injectabl e, quadrivalent, preservative free; Translations: [Fluarix PF Quadrivalent ] INDIGO Hole 19EL [facility] 06-03-2018 influenza virus vacc ine, unspecified formulation INDIGO MIEDEL [facility] 06-03-2018 pneumococcal polysaccharide vaccine, 23 valent INDIGO MIEDEL [facility] 05-16-2018 influenza virus vacc ine, unspecified formulation INDIGO MIEDEL [facility] 05-16-2018 pneumococcal polysaccharide vaccine, 23 valent INDIGO MIEDEL [facility] 06-05-2017 influenza virus vacc ine, unspecified formulation INDIGO MIEDEL [facility] 06-28-2016 influenza virus vacc ine, unspecified formulation INDIGO MIEDEL [facility] 06-14-2015 influenza virus vacc ine, unspecified formulation INDIGO MIEDEL [facility] 06-29-2014 influenza virus vacc ine, unspecified formulation INDIGO MIEDEL [facility] 07-01-2013 influenza virus vacc ine, unspecified formulation INDIGO MIEDEL [facility] 07-24-2012 influenza virus vacc ine, unspecified formulation INDIGO MIEDEL [facility] 07-12-2011 influenza virus vacc ine, unspecified formulation INDIGO MIEDEL [facility] 07-02-2010 influenza virus vacc ine, unspecified formulation INDIGO MIEDEL [facility] Payers Date Payer Category Payer Unknown [id number] 1960 Unknown [id number] 1960 Unknown [id number] Social History Date Type Detail Facility Start: 11-18-2019 Tobacco smoking status Never s moked tobacco (finding) [facility] Sex Assigned At Female [facility] Evaluation + Plan note Note Date & Type Note Facility Evaluation + Plan note No data available for this section [facility] Discharge instructions Note Date & Type Note Facility Hospital Discharge instructions No data available for this section [facility] Progress note Note Date & Type Note Facility Progress note No data available for this section [facility] Summary Purpose Family History No Family History Records Found Advance Directives No Advanced Directives Records Found Additional Source Comments Patient Care team informatio n (unrecognized section and content) Care Team Personnel Name: BALAJIJUNAID INDIGO Member Role: Primary Care Physician Address: Address: [address] [place] [address] Care Team Related Persons Name: HAN JESUSITA King Address: Home [address] [place] [address] INFORMATION SOURCE (unrecogn ized section and content) FOR RECORDS PERTAINING TO PATIENTS WHO ARE OR HAVE BEEN ENROLLED IN A CHEMICAL DEPENDENCY/SUBSTANCEABUSE PROGRAM, SOME INFORMATION MAY BE OMITTED. This clinical summary was aggregated from multiple sources. Caution should be exercised in using it in the provision of clinical care. This summary normalizes information from multiple sources, and as a consequence, information in this document may materially change the coding, format and clinical context of patient data. In addition, data may be omitted in some cases. CLINICAL DECISIONS SHOULD BE BASED ON THE PRIMARY CLINICAL RECORDS. [employer] provides no warranty or guarantee of the accuracy or completeness of information in this document.
[2023-10-10 10:13] LABS: Absolute Lymphocyte Count 0.86 X10^3/uL (0.83-4.51); Absolute Neutrophil Count 2.2 X10^3/uL (2.0-7.7); Basophil# 0.05 X10^3/uL; Basophil% 1.3 % (0-1); Eosinophil# 0.27 X10^3/uL; Eosinophils% 7.1 % (0-5); Hematocrit 39.9 % (37-47); Hemoglobin 12.6 g/dL (12.0-15.0); Lymphocyte # 0.86 X10^3/ul (0.83-4.51); Lymphocyte % 22.6 % (19-41); Mean Corp Hgb Conc 31.6 g/dL (32-36); Mean Corpuscular Hgb 28.4 pg (27.0-32.0); Mean Corpuscular Volume 90.1 fL (81-99); Mean Platelet Vol. 10.6 fl (6.2-12.0); Monocyte# 0.38 X10^3/uL; NRBC Flagged by Analyzer 0 % (0-5); Neutrophil # 2.24 X10^3/uL (2.7-7.7); Neutrophil % 58.7 % (47-70); Platelet Count 187 K/mm3 (150-450); RBC Distribution Width CV 14.1 % (11.6-14.6); RBC Distribution Width SD 46.3 fl (35.1-43.9); Red Blood Count 4.43 M/mm3 (4.2-5.4); White Blood Count 3.8 K/mm3 (4.4-11.0)
[2023-10-10 10:42] LABS: Cholesterol 142 mg/dL (200); High Density Lipoprotein 60 mg/dL; Thyroid Stim Hormone (TSH) 1.14 uIU/mL (0.358-3.74); Triglycerides 104 mg/dL; Very Low Density Lipoprotein 21 mg/dL (5-40)
[2023-10-10 11:11] LABS: Microalbumin,Random Urine 7.4 mg/L (NO RANGE EST.); Microalbumin:Creatinine Ratio 7.5 mg/g CRE (<30 mg/g CRE)
== END | disposition home or self-care (01) ==
LOC: MTLAB 08:44
PROVIDERS: PCP Family Medicine; Referring Provider Family Medicine; Visit Provider Family Medicine
DX: Z00.00 Encounter for general adult medical examination without abnormal findings (principal); E11.69 Type 2 diabetes mellitus with other specified complication; E03.9 Hypothyroidism, unspecified; E78.5 Hyperlipidemia, unspecified
CPT/HCPCS: 36415; 80061; 82043; 82570; 84439; 84443; 85025

== ENCOUNTER 2023-10-28 10:00 | Outpatient (RCR) | payer BC, SELFPAY ==
--- NOTE | 2023-10-06 11:20 | HP.PTEVAL_ITS ---
Patient's Visit Information Visit Information Visit Information: IRAIDA SHORT is a 63 year old F referred to Physical Therapy by Dr. Sumit Estrada DPM with a diagnosis of L ant/post tendonitis. Date of Evaluation: 09/29/23 Physical Therapist: Mayo Marcus DPT Visit Plan Frequency: 1-2x /Week Duration: 6 Weeks Plan: 1) Increase L ankle jt mobility and ROM 2) Stretch gastroc (active and passive) 3) Eccentric strengthening L ant tib. (begin with seated, no resistance or can trial manual resistance) 4) Some hip ABD strengthening, especially if ankle is having a flare up 5) Dry needling prn L gastroc/tib ant (HEP: knee to wall stretch, seated active heel slides to promote DF, longsitting towel assisted calf stretch) Subjective Subjective: Pt presents to PT for L ankle pain/tendonitis that began last March (2022). Pt saw physician and was prescribed Naproxen and standing calf stretch, had some relief but is now consistently in pain. Aggs: getting out of car and putting weight on L foot, sometimes walking, tight shoes on top of foot, and stairs. Eases: naproxen, laying down/taking weight off LLE. Pain at its best is 1 with rest, but worst at 8 or 9 with movement. Pt stated goals are to be able to exercise without pain, stand to do dishes, walk with less pain, and garden (get up from kneeling position) with less pain. Hx of chronic ankle pain. Main issue is pain with WB after resting (regardless of how short or long of a rest period). Pain Left Ankle: Pain Intensity (Out of 10): 4 Pain Intensity Range: 0 and 9 Objective Objective: ROM: 4 deg DF, 70 deg PF, 15 deg EV, 30 INV, ant pain with OP in PF and EV MMT: painful EV, discomfort with PF/DF, L ABD weaker than R. Pain with standing heel raise, unable to perform SL heel raise damari (pt reported balance was the issue). GERARDO: hypomobile L talocrural, early firm end feel d/t gastroc tightness and joint mobility PALPATION: pain with stretch of ant tib (into PF), TTP ant tib muscle belly and distal tendon insertion, tightness in gastroc GAIT: antalgic with increased swing time on L, genu valgus B hips, pain with push off in terminal stance STAIRS: more painful ascending, gentle placement of foot in anticipation of pain NEURO: sensation intact Balance/Special Test Scores Lower Extremity Functional Score: 50 Goals Goal 1:: STG: Pt will be able to walk 100 ft with <2/10 pain to indicate appropriate pain management and increase participation in functional act. Goal Time Frame: 2-4 Weeks Goal 2:: LTG: Pt will be able to walk 300+ feet with <2/10 pain to increase participation in functional and recreational act. Goal Time Frame: 4-6 Weeks Goal 3:: Pt will achieve 4/5 global L ankle strength with <2/10 pain Goal Time Frame: 4-6 Weeks Goal 4:: Pt will be able to Rehabilitation Potential Physical Therapy Diagnosis: Pt presents with chronic ant ankle pain, beginning 6 months ago, indicating more of a tendinosis tissue process. 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 Rehabilitation Potential: Good Anticipated Interventions Patient/Client Instruction: Educate patient on: Condition and Plan of Care For the Purpose of:: To decrease pain, To decrease swelling/inflammation, To increase ROM, To improve ability to perform ADL's, To increase tolerance to activity/condition/position, To improve performance and independence with ADL's, To improve gait and locomotor functions, To improve health of tissue, To decrease soft tissue restriction, To increase flexibility/ROM, To prevent re- injury and To improve ability to perform tasks related to life management Therapeutic Exercise to Include: Strength training and Flexibilty training For the Purpose of:: To decrease pain, To decrease swelling/inflammation, To increase ROM, To improve nutrient delivery to tissue, To improve muscle performance and motor function, To decrease soft tissue restriction, To increase flexibility/ROM, To assume or resume ADL's, To improve safety, To improve ability to perform tasks related to life management and To improve tolerance to ADL's Manual Therapy Techniques to Include: Mobilization, Passive ROM, Functional dry needling and Soft tissue mobilization For the Purpose of:: To decrease pain, To decrease swelling/inflammation, To increase ROM, To improve ability to perform ADL's, To improve health of tissue, To decrease soft tissue restriction and To increase flexibility/ROM Iontophoresis (with Dexamethozone, with Acetic acid): Yes Functional electric stimulation: Yes TENS: Yes Cryotherapy (ice pack, ice massage): Yes For the Purpose of:: To decrease pain, To decrease swelling/inflammation, To increase ROM, To increase tolerance to activity/condition/position and To improve tolerance to ADL's Text: Thank you for the opportunity to evaluate your patient. For Medicare and Medicare HMO plans, please review the plan of care and approve it. It will need to be FAXED BACK to us at [phone] for Medicare purposes. For Medicare only, by signing this I certify the plan of care. Please let me know if there are questions or concerns regarding this plan of care. Physician Signature: Date:
--- NOTE | 2023-10-28 13:50 | HP.PTREVAL_ITS ---
Re-Evaluation Intro: Dr. Sumit Estrada, DPM, It has been my pleasure to treat IRAIDA SHORT over the last 9 visits for L ant/post tendonitis. Please see the progress note below for an update on the physical therapy plan of care! Subjective Subjective: Pt reports doing well for a few weeks but then feels like she went backwards. Pt has been consistent with HEP but is having more difficulty with walking, LE swelling, and pain in the foot especially after prolonged periods of sitting. Objective Objective/Function: ROM: L DF 10 AROM, 60 PF 30 ev, 40 inv MMT: 4/5 with some pain with resisted DF PALPATION: tenderness and tightness of distal ant tib tendon GAIT: normal pattern, pt reported some tightness in ant ankle when picking up toes Pt feels overall PT has been helpful, but as strength training progressed, has had an increase in pain and soreness that has not resolved in the past few weeks. Pt is able to amb. and do all of her normal tasks but is more painful than she was early on in rehab, especially with WB after prolonged sitting. Pt reports 2/10 pain with walking and some tightness in ant. tib, discussed with pt taking a break from PT and performing HEP I for 2 weeks. Pt to come back if pain and discomfort persists. Plan Plan Plan: Pt to return in 2 weeks if having continued pain in foot, but can cancel if feeling better. Pt has improved in strength, ROM, and gait pattern but feels like rehab has maybe increased too much too soon and caused some irritation in tib ant. tendon. Address soft tissue limitations and pain if pt returns, otherwise pt to be d/c. Balance/Gait/Functional tests Balance/Special Test Scores Lower Extremity Functional Score: 56 Goals Goals Goal 1:: STG: Pt will be able to walk 100 ft with <2/10 pain to indicate appropriate pain management and increase participation in functional act. Goal Time Frame: 2-4 Weeks Goal Progress: Goal Met Goal 2:: LTG: Pt will be able to walk 300+ feet with <2/10 pain to increase participation in functional and recreational act. Goal Time Frame: 4-6 Weeks Goal Progress: Progressing Goal 3:: Pt will achieve 4/5 global L ankle strength with <2/10 pain Goal Time Frame: 4-6 Weeks Goal Progress: Goal Met Goal 4:: Pt will be able to Anticipated Interventions Anticipated Interventions Patient/Client Instruction: Educate patient on: Condition and Plan of Care For the Purpose of:: To decrease pain, To decrease swelling/inflammation, To increase ROM, To improve ability to perform ADL's, To increase tolerance to activity/condition/position, To improve performance and independence with ADL's, To improve gait and locomotor functions, To improve health of tissue, To decrease soft tissue restriction, To increase flexibility/ROM, To prevent re- injury and To improve ability to perform tasks related to life management Therapeutic Exercise to Include: Strength training and Flexibilty training For the Purpose of:: To decrease pain, To decrease swelling/inflammation, To increase ROM, To improve nutrient delivery to tissue, To improve muscle performance and motor function, To decrease soft tissue restriction, To increase flexibility/ROM, To assume or resume ADL's, To improve safety, To improve ability to perform tasks related to life management and To improve tolerance to ADL's Manual Therapy Techniques to Include: Mobilization, Passive ROM, Functional dry needling and Soft tissue mobilization For the Purpose of:: To decrease pain, To decrease swelling/inflammation, To increase ROM, To improve ability to perform ADL's, To improve health of tissue, To decrease soft tissue restriction and To increase flexibility/ROM Iontophoresis (with Dexamethozone, with Acetic acid): Yes Functional electric stimulation: Yes TENS: Yes Cryotherapy (ice pack, ice massage): Yes For the Purpose of:: To decrease pain, To decrease swelling/inflammation, To increase ROM, To increase tolerance to activity/condition/position and To improve tolerance to ADL's Re-Evaluation Ending Re-evaluation ending: Please do not hesitate to contact me at [phone] by phone or if you have questions or concerns regarding this new plan of care! Sincerely, Mayo Marcus DPT
--- NOTE | 2023-12-23 09:10 | HP.PTDCNRP_ITS ---
Patient Information Patient Information: IRAIDA SHORT was seen in my office for initial evaluation on 09/29/23. The following Plan of Care was established for this patient: POC Established Initial Frequency: 1-2x /Week Initial Duration: 6 Weeks Anticipated Interventions Patient/Client Instruction: Educate patient on: Condition and Plan of Care For the Purpose of:: To decrease pain, To decrease swelling/inflammation, To increase ROM, To improve ability to perform ADL's, To increase tolerance to activity/condition/position, To improve performance and independence with ADL's, To improve gait and locomotor functions, To improve health of tissue, To decrease soft tissue restriction, To increase flexibility/ROM, To prevent re- injury and To improve ability to perform tasks related to life management Therapeutic Exercise to Include: Strength training and Flexibilty training For the Purpose of:: To decrease pain, To decrease swelling/inflammation, To increase ROM, To improve nutrient delivery to tissue, To improve muscle performance and motor function, To decrease soft tissue restriction, To increase flexibility/ROM, To assume or resume ADL's, To improve safety, To improve ability to perform tasks related to life management and To improve tolerance to ADL's Manual Therapy Techniques to Include: Mobilization, Passive ROM, Functional dry needling and Soft tissue mobilization For the Purpose of:: To decrease pain, To decrease swelling/inflammation, To increase ROM, To improve ability to perform ADL's, To improve health of tissue, To decrease soft tissue restriction and To increase flexibility/ROM Iontophoresis (with Dexamethozone, with Acetic acid): Yes Functional electric stimulation: Yes TENS: Yes Cryotherapy (ice pack, ice massage): Yes For the Purpose of:: To decrease pain, To decrease swelling/inflammation, To increase ROM, To increase tolerance to activity/condition/position and To improve tolerance to ADL's Last Seen Last Seen: This patient was last seen in our office 10/28/23. Pertinent comments regarding their Physical therapy will appear below: Pt. was seen for her L ankle pain. She had been improving, but at our last visit she was having a little bit more soreness. She was to trial her exercises on her own and follow up with PT if not doing better. She has not been back to PT in ~2 months and will be DC at this point in time. At this point I will be discontinuing this patient from physical therapy. I would be happy to see this patient again in the future if found appropriate by the physician. Thank you! Mayo Marcus, DPT Balance/Gait/Functional tests Balance/Special Test Scores Lower Extremity Functional Score: 56
== END 2023-10-28 19:00 | disposition home or self-care (01) ==
LOC: PT 10:00
PROVIDERS: PCP Family Medicine; Visit Provider Student in an Organized Health Care Education/Training Program
DX: M76.62 Achilles tendinitis, left leg (principal); M76.822 Posterior tibial tendinitis, left leg
CPT/HCPCS: 97110; 97161; 97530

== ENCOUNTER → 2024-03-16 | Outpatient (CLI) | payer BC, SELFPAY ==
[2024-03-16 15:46] LABS: Absolute Lymphocyte Count 0.96 X10^3/uL (0.83-4.51); Absolute Neutrophil Count 2.4 X10^3/uL (2.0-7.7); Basophil# 0.07 X10^3/uL; Basophil% 1.7 % (0-1); Eosinophil# 0.17 X10^3/uL; Eosinophils% 4.2 % (0-5); Hematocrit 41.7 % (37-47); Lymphocyte # 0.96 X10^3/ul (0.83-4.51); Lymphocyte % 23.8 % (19-41); Mean Corp Hgb Conc 31.2 g/dL (32-36); Mean Corpuscular Hgb 28.8 pg (27.0-32.0); Mean Corpuscular Volume 92.3 fL (81-99); Monocyte# 0.45 X10^3/uL; Monocyte% 11.2 % (0-10); NRBC Flagged by Analyzer 0 % (0-5); Neutrophil # 2.37 X10^3/uL (2.7-7.7); Neutrophil % 58.9 % (47-70); Platelet Count 235 K/mm3 (150-450); RBC Distribution Width CV 13.7 % (11.6-14.6); RBC Distribution Width SD 46.5 fl (35.1-43.9); Red Blood Count 4.52 M/mm3 (4.2-5.4)
[2024-03-16 16:18] LABS: ALB/GLOB Ratio 1.6 RATIO (0.9-2.4); AST(SGOT) 18 U/L (15-37); Alanine Aminotransfer ALT/SGPT 30 U/L (13-56); Albumin, Serum 4.4 g/dL (3.2-5.0); Alkaline Phosphatase 91 U/L (45-117); Anion Gap 6 (5-15); BUN 22 mg/dL (7-18); BUN/Creat Ratio 21.6 RATIO (10-20); Calcium,Total 9.6 mg/dL (8.5-10.1); Chloride 109 mmol/L (98-107); Creatinine, Serum 1.02 mg/dL (0.55-1.02); EST Glomerular Filtration Rate 58 mL/min (>60); Est Glom Filt Rate - Afr Amer 71 mL/min (>60); Globulin 2.7 g/dL (2.2-4.2); Glucose 129 mg/dL (74-106); Potassium 4.1 mmol/L (3.5-5.1); Protein, Total 7.1 g/dL (6.4-8.2); Sodium Level 140 mmol/L (136-145)
== END | disposition home or self-care (01) ==
LOC: MTLAB 13:32
PROVIDERS: PCP Family Medicine; Referring Provider Internal Medicine Rheumatology; Visit Provider Internal Medicine Rheumatology
DX: M06.4 Inflammatory polyarthropathy (principal); Z79.899 Other long term (current) drug therapy; R76.8 Other specified abnormal immunological findings in serum
CPT/HCPCS: 36415; 80053; 85025

== ENCOUNTER → 2024-04-13 | Outpatient (CLI) | payer BC, SELFPAY ==
[2024-04-13 18:24] LABS: Microalbumin,Random Urine 8.2 mg/L (NO RANGE EST.); Microalbumin:Creatinine Ratio 10.9 mg/g CRE (<30 mg/g CRE)
== END | disposition home or self-care (01) ==
LOC: LABSPEC 16:26
PROVIDERS: PCP Family Medicine; Visit Provider Family Medicine
DX: E11.9 Type 2 diabetes mellitus without complications (principal)
CPT/HCPCS: 82043; 82570

== ENCOUNTER → 2024-04-15 | Outpatient (CLI) | payer BC, SELFPAY ==
--- NOTE | 2024-04-15 14:44 | RAD_ITS ---
EXAM: XR CHEST, 2 VIEWS CLINICAL INDICATION: NEW SOB TECHNIQUE: Frontal and lateral views of the chest. COMPARISON: XR Chest dated 04/27/2023 FINDINGS: LUNGS AND PLEURAL SPACES: Mild atelectasis of the right lower lobe. HEART: Normal heart size. MEDIASTINUM: No mediastinal or hilar mass. BONES/JOINTS: S-shaped scoliosis of the thoracolumbar spine again noted. UPPER ABDOMEN: Prominent elevation of the right hemidiaphragm. RAD/Chest PA and Lateral IMPRESSION: Elevated right hemidiaphragm associated with atelectatic changes of the right lower lobe Electronically Signed: Jeffry Ortega MD at 9:37 EDT ,
== END | disposition home or self-care (01) ==
LOC: MTRAD 14:42
PROVIDERS: PCP Family Medicine; Referring Provider Family Medicine; Visit Provider Family Medicine
DX: R06.02 Shortness of breath (principal)
CPT/HCPCS: 71046

== ENCOUNTER 2024-04-28 13:00 | Outpatient (RCR) | payer BC, SELFPAY | END 2024-04-28 19:00 | disposition home or self-care (01) | LOC: PT 13:00 | PROVIDERS: PCP Family Medicine; Referring Provider Family Medicine; Visit Provider Family Medicine | DX: M25.511 Pain in right shoulder (principal) | CPT/HCPCS: 97110; 97162; 97530 ==

== ENCOUNTER → 2024-05-12 | Outpatient (CLI) | payer BC, SELFPAY | END | disposition home or self-care (01) | LOC: PSN 09:25 | PROVIDERS: PCP Family Medicine; Referring Provider Family Medicine; Visit Provider Family Medicine | DX: J98.6 Disorders of diaphragm (principal) | CPT/HCPCS: 94060; 94726; 94729 ==

== ENCOUNTER → 2024-05-21 | Outpatient (CLI) | payer BC, SELFPAY ==
--- NOTE | 2024-05-21 07:59 | CT_ITS ---
EXAM: CT CHEST WITHOUT INTRAVENOUS CONTRAST CLINICAL INDICATION: Disorders of diaphragm TECHNIQUE: Helically acquired images were obtained of the chest without intravenous contrast. This CT exam was performed using one or more of the following dose reduction techniques: automated exposure control, adjustment of the mA and/or kV according to patient size, and/or use of iterative reconstruction technique. RADIATION DOSE: CTDIvol = 16.76 mGy, DLP = 531.83 mGy-cm COMPARISON: Chest radiographs 04/27/2023 and 04/15/2024. FINDINGS: LUNGS AND PLEURAL SPACES: Mild compressive atelectasis of the right posterior lung base with minimal air bronchograms. No mass. No pleural effusion or thickening. HEART: Unremarkable. Heart size is normal. No pericardial effusion. No significant coronary artery calcifications. MEDIASTINUM: Unremarkable. No mediastinal or hilar adenopathy. Esophagus is unremarkable. No hiatal hernia. THYROID: Unremarkable. No thyroid lesions. BONES/JOINTS: Pronounced T11-T12 disc space height narrowing with endplate sclerosis. No lytic or blastic lesions. Small low-attenuation lesion in the right posterior renal parenchyma with CT number of 19.74 Hounsfield units measures 11 mm long. This is most likely cyst. Mild S-shaped scoliosis of the thoracolumbar spine. VASCULATURE: Unremarkable. Thoracic aorta is non-dilated. 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 0.[address]/Chest without Contrast IMPRESSION: 1. 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 2. No CT evidence of any lung mass or lymphadenopathy in the chest. 3. Compressive atelectasis of right lung base containing some air bronchograms. Superimposed pneumonia cannot be excluded. 4. 11 mm low-attenuation lesion in the right posterior renal parenchyma with CT number of 19.74 Hounsfield units. ACR White Paper guidelines (Hermeka, et al. JACR 2018; 15(2):264-273) suggest no follow-up is necessary. Electronically Signed: Usama Cunningham MD at 8:48 EDT ,
--- NOTE | 2024-05-21 08:12 | RAD_ITS ---
PROCEDURE: Sniff test. DATE OF EXAMINATION: May 21, 2024. INDICATION: Female, 63 years old. Elevation of the right hemidiaphragm. FLUOROSCOPY TIME (if supplied): (27 seconds) minutes/seconds. 67.3 mGy. RAD/Fluoroscopy 1 Hr or Less IMPRESSION: There is elevation of the right hemidiaphragm. There is normal movement of both hemidiaphragms. Electronically Signed: Everardo Bryson MD at 8:47 EDT ,
== END | disposition home or self-care (01) ==
LOC: CT 07:58
PROVIDERS: PCP Family Medicine; Referring Provider Family Medicine; Visit Provider Family Medicine
DX: J98.6 Disorders of diaphragm (principal)
CPT/HCPCS: 71250; 76000

== ENCOUNTER → 2024-08-27 | Outpatient (CLI) | payer BC, SELFPAY ==
[2024-08-27 12:01] LABS: Absolute Lymphocyte Count 0.73 X10^3/uL (0.83-4.51); Absolute Neutrophil Count 2.8 X10^3/uL (2.0-7.7); Basophil# 0.07 X10^3/uL; Basophil% 1.7 % (0-1); Eosinophils% 2.5 % (0-5); Hematocrit 40.3 % (37-47); Hemoglobin 13.5 g/dL (12.0-15.0); Lymphocyte # 0.73 X10^3/ul (0.83-4.51); Lymphocyte % 18.2 % (19-41); Mean Corp Hgb Conc 33.5 g/dL (32-36); Mean Corpuscular Hgb 29.8 pg (27.0-32.0); Mean Platelet Vol. 10.3 fl (6.2-12.0); Monocyte% 7.5 % (0-10); NRBC Flagged by Analyzer 0 % (0-5); Neutrophil # 2.81 X10^3/uL (2.7-7.7); Neutrophil % 69.9 % (47-70); Platelet Count 178 K/mm3 (150-450); RBC Distribution Width CV 13.9 % (11.6-14.6); RBC Distribution Width SD 45.1 fl (35.1-43.9); Red Blood Count 4.53 M/mm3 (4.2-5.4)
[2024-08-27 15:33] LABS: ALB/GLOB Ratio 1.5 RATIO (0.9-2.4); AST(SGOT) 17 U/L (15-37); Alanine Aminotransfer ALT/SGPT 25 U/L (13-56); Albumin, Serum 4.1 g/dL (3.2-5.0); Alkaline Phosphatase 90 U/L (45-117); Anion Gap 4 (5-15); BUN 15 mg/dL (7-18); BUN/Creat Ratio 15.8 RATIO (10-20); Calcium,Total 10.3 mg/dL (8.5-10.1); Chloride 109 mmol/L (98-107); Creatinine, Serum 0.95 mg/dL (0.55-1.02); EST Glomerular Filtration Rate 63 mL/min (>60); Est Glom Filt Rate - Afr Amer 76 mL/min (>60); Globulin 2.7 g/dL (2.2-4.2); Glucose 174 mg/dL (74-106); Potassium 4.1 mmol/L (3.5-5.1); Protein, Total 6.8 g/dL (6.4-8.2); Sodium Level 140 mmol/L (136-145)
== END | disposition home or self-care (01) ==
LOC: MTLAB 10:41
PROVIDERS: PCP Family Medicine; Referring Provider Internal Medicine Rheumatology; Visit Provider Internal Medicine Rheumatology
DX: M06.4 Inflammatory polyarthropathy (principal); R76.8 Other specified abnormal immunological findings in serum; Z79.899 Other long term (current) drug therapy
CPT/HCPCS: 36415; 80053; 85025

== ENCOUNTER → 2024-10-18 | Outpatient (CLI) | payer BC, SELFPAY ==
[2024-10-18 11:47] LABS: Cholesterol 153 mg/dL (200); High Density Lipoprotein 57 mg/dL; T4 Free Direct 1.11 ng/dL (0.76-1.46); Triglycerides 116 mg/dL; Very Low Density Lipoprotein 23 mg/dL (5-40)
== END | disposition home or self-care (01) ==
LOC: MTLAB 08:54
PROVIDERS: PCP Family Medicine; Referring Provider Family Medicine; Visit Provider Family Medicine
DX: Z00.00 Encounter for general adult medical examination without abnormal findings (principal); E11.69 Type 2 diabetes mellitus with other specified complication; E03.9 Hypothyroidism, unspecified; E78.5 Hyperlipidemia, unspecified
CPT/HCPCS: 36415; 80061; 84439; 84443

== ENCOUNTER → 2025-02-21 | Outpatient (CLI) | payer BC, SELFPAY ==
[2025-02-21 10:01] LABS: Absolute Lymphocyte Count 0.83 X10^3/uL (0.83-4.51); Absolute Neutrophil Count 2.8 X10^3/uL (2.0-7.7); Basophil# 0.06 X10^3/uL; Basophil% 1.4 % (0-1); Eosinophil# 0.17 X10^3/uL; Hematocrit 41.7 % (37-47); Hemoglobin 13.3 g/dL (12.0-15.0); Lymphocyte # 0.83 X10^3/ul (0.83-4.51); Lymphocyte % 19.7 % (19-41); Mean Corp Hgb Conc 31.9 g/dL (32-36); Mean Corpuscular Volume 90.8 fL (81-99); Mean Platelet Vol. 11.1 fl (6.2-12.0); Monocyte# 0.37 X10^3/uL; Monocyte% 8.8 % (0-10); NRBC Flagged by Analyzer 0 % (0-5); Neutrophil # 2.77 X10^3/uL (2.7-7.7); Neutrophil % 65.9 % (47-70); Platelet Count 204 K/mm3 (150-450); RBC Distribution Width CV 13.7 % (11.6-14.6); RBC Distribution Width SD 45.5 fl (35.1-43.9); Red Blood Count 4.59 M/mm3 (4.2-5.4); White Blood Count 4.2 K/mm3 (4.4-11.0)
[2025-02-21 10:32] LABS: ALB/GLOB Ratio 1.9 RATIO (0.9-2.4); AST(SGOT) 21 U/L (<=31); Alanine Aminotransfer ALT/SGPT 17 U/L (<=34); Albumin, Serum 4.3 g/dL (3.4-4.8); Alkaline Phosphatase 99 U/L (35-104); Anion Gap 10 (5-15); BUN 16 mg/dL (4-19); BUN/Creat Ratio 18.6 RATIO (10-20); Carbon Dioxide 25.3 mmol/L (21.0-32.0); Chloride 106 mmol/L (98-108); Creatinine, Serum 0.86 mg/dL (0.70-1.20); EST Glomerular Filtration Rate 76 (>60); Globulin 2.2 g/dL (2.2-4.2); Glucose 127 mg/dL (70-99); Potassium 4.3 mmol/L (3.3-5.1); Protein, Total 6.5 g/dL (5.9-8.4); Sodium Level 141 mmol/L (133-145); Total Bilirubin 0.49 mg/dL (0.00-1.30)
--- OUTSIDE RECORDS SUMMARY | 2025-02-21 11:00 | XMS RPT_ITS | CCD ---
Author Organization [facility] Care Team Providers Care [place] Manager Name Role Phone JUSTIN SARAH Primary Care Physician [phone] MIEDEL, SARAH Attending Unavailable MIEDEL, SARAH Primary Care Unavailable MIEDEL, SARAH Attending Unavailable MIEDEL, SARAH Primary Care Unavailable Miedel, Sarah Primary Care Unavailable Miedel, Sarah Attending Unavailable Miedel, Sarah Referring Unavailable Miedel, Sarah Primary Care Unavailable Miedel, Sarah Attending Unavailable Miedel, Sarah Referring Unavailable Miedel, Sarah Primary Care Unavailable Miedel, Sarah Attending Unavailable Miedel, Sarah Referring Unavailable Miedel, Sarah Primary Care Unavailable Vellanki, Rula Attending Unavailable Vellanki, Rula Referring Unavailable Miedel, Sarah Primary Care Unavailable Miedel, Sarah Attending Unavailable Miedel, Sarah Referring Unavailable Vellanki, Rula Attending Unavailable Vellanki, Rula Referring Unavailable Miedel, Sarah Primary Care Unavailable Miedel, Sarah Primary Care Unavailable Miedel, Sarah Attending Unavailable Miedel, Sarah Referring Unavailable Miedel, Sarah Primary Care Unavailable Miedel, Sarah Attending Unavailable Billy Martinez Attending Unavailable Miedel, Sarah Primary Care Unavailable Miedel, Sarah Attending Unavailable Miedel, Sarah Referring Unavailable Allergies Allergy Classification Reported Allergen(s) Allergy Type Date of Onset Reaction(s) Facility (8 sources) Amoxicillin; Translations: [amoxicillin] Drug Allergy 0 Unknown, Hives [facility] (7 sources) oxyCODONE Drug Allergy 0 Unknown, confusion/ nausea [facility] (8 sources) Penicillins; Translations: [Penicillins] Allergy to substance 0 Unknown, hives/rash [facility] (1 source) Acetaminophen / oxyCODONE; Translations: [acetaminophen-ox ycodone] Drug Allergy Confusion [facility] (1 source) Penicillin; Translations: [penicillin] Drug Allergy Hives [facility] (1 source) Amoxicillin Drug Allergy 3 [facility] (1 source) oxyCODONE Drug Allergy 3 [facility] Medications Current Medications Medication Drug Class(es) Dates Sig (Normalized) Sig (Original) acetaminophen 500 mg oral tablet (7 sources) Start: 11-26-2018 take 500 mg by mouth every six hours Acetaminophen Active 500 MG PO EVERY 6 HOURS November 26, 2018 12:00am alendronic acid 70 mg oral tablet (8 sources) Bisphosphonate Start: 07-22-2019 End: 10-14-2020 take 70 mg by mouth every week Alendronate Active 70 MG PO EVERY WEEK July 27, 2019 1:00am atorvastatin 10 mg oral tablet (3 sources) HMG-CoA Reductase Inhibitor Start: 04-27-2023 take 10 mg by mouth at bedtime Atorvastatin Active 10 MG PO AT BEDTIME April 27, 2023 12:00am calcium carbonate 1250 mg / cholecalciferol 0.01 mg oral tablet (1 source) Vitamin D Start: 04-07-2019 take 1 tablet by mouth once daily calcium (as carbonate)-vitamin D 500 mg-400 intl units oral tablet Dose = 1 tab(s), Oral, qDay, # 300 tab(s), 0 Refill(s) Start Date: 04/07/19 Status: Ordered Calcium Carbonate-Vitamin D2 (Oyster Shell Calcium-Vit D Tab) 1 EACH tablet (7 sources) Start: 11-26-2018 Calcium Carbonate-Vitamin D2 (Oyster Shell Calcium-Vit D Tab) 1 EACH tablet Active 1 EACH PO DAILY November 25, 2018 11:00pm Start: 11-26-2018 Calcium Carbon ate-Vitamin D2 (Oyster Shell Calcium-Vit D Tab) 1 EACH tablet Active 1 EACH PO DAILY November 26, 2018 12:00am cetirizine hydrochloride 10 mg oral tablet (7 sources) Histamine-1 Receptor Antagonist Start: 11-26-2018 take 1 tablet by mouth once daily Cetirizine (Zyrtec) 10 MG tablet Active 10 MG PO DAILY November 26, 2018 12:00am cholecalciferol 0.025 mg oral tablet (7 sources) Vitamin D Start: 07-27-2020 take 1000 [IU] by mouth once daily Cholecalciferol (Vitamin D3) Active 1000 UNIT PO DAILY July 27, 2020 1:00am clobetasol propionate 0.5 mg/ml topical solution (3 sources) Corticosteroid Start: 04-27-2023 Clobetasol Active 1 APPLIC TOPICAL .week April 27, 2023 12:00am twice a week escitalopram 20 mg oral tablet (8 sources) Serotonin Reuptake Inhibitor Start: 11-18-2019 Lexapro 20 mg oral tablet Dose : 20 mg = 1 tab(s), Oral, qDay, # 90 tab(s), 3 Refill(s), Pharmacy: [facility], Depression, 163, cm, 11/18/19 14:42:00 EST, Height, kg, 11/18/19 14:42:00 EST, Dosing Weight Start Date: 11/18/19 Status: Ordered Start: 11-26-2018 take 20 mg by mouth once daily Escitalopram Oxalate Active 20 MG PO DAILY November 26, 2018 12:00am Start: 11-26-2018 take 10 mg by mouth once daily Escitalopram Oxalate Active 10 MG PO DAILY November 26, 2018 12:00am Fish Oil-Dha-Epa (7 sources) Start: 11-26-2018 Fish Oil-Dha-E pa Active 2 EACH PO DAILY November 25, 2018 11:00pm Start: 11-26-2018 Fish Oil-Dha-E pa Active 2 EACH PO DAILY November 26, 2018 12:00am Fish Oils (1 source) Start: 04-07-2019 Fish Oil 1200 mg oral capsule Dose : 1,200 mg = 1 cap(s), Oral, BID, # 60 cap(s), 0 Refill(s) Start Date: 04/07/19 Status: Ordered fluticasone propionate 0.05 mg/actuat metered dose nasal spray (8 sources) Corticosteroid Start: 03-01-2020 take 1 dose nasal route twice daily fluticasone 50 mcg/inh NASAL spray Dose = 1 spray(s), Nostril, each, BID, 0 Refill(s) Start Date: 03/01/20 Status: Ordered Start: 11-30-2018 Fluticasone Ot c Active 50 MCG NASAL DAILY November 29, 2018 11:00pm Start: 11-30-2018 Fluticasone Ot c Active 50 MCG NASAL DAILY November 30, 2018 12:00am hydroxychloroquine sulfate 200 mg oral tablet (3 sources) Antimalarial, Antirheumatic Agent Start: 04-27-2023 take 200 mg by mouth twice daily Hydroxychloroquine Active 200 MG PO TWICE A DAY April 27, 2023 12:00am levothyroxine sodium 0.1 mg oral tablet (8 sources) l-Thyroxine Start: 11-18-2019 levothyroxine 100 mcg (0.1 mg) oral tablet Dose : 100 mcg = 1 tab(s), Oral, qDay, # 90 tab(s), 3 Refill(s), Pharmacy: [facility], Hypothyroid, 163, cm, 11/18/19 14:42:00 EST, Height, kg, 11/18/19 14:42:00 EST, Dosing Weight Start Date: 11/18/19 Status: Ordered Start: 11-26-2018 take 1 tablet by anjum once daily Levothyroxine (Levo-T) 100 MCG tablet Active 100 MCG PO DAILY November 26, 2018 12:00am lisinopril 5 mg oral tablet (1 source) Angiotensin Converting Enzyme Inhibitor Start: 03-08-2020 lisinopril 5 mg oral tablet Dose : 5 mg = 1 tab(s), Oral, qDay, # 90 tab(s), 1 Refill(s), Pharmacy: [facility], Type 2 diabetes mellitus not at goal, 162, cm, 03/08/20 15:29:00 EDT, Height, kg, 03/08/20 15:29:00 EDT, Dosing Weight Start Date: 03/08/20 Status: Ordered loratadine 10 mg oral tablet (1 source) Start: 03-01-2020 loratadine 10 mg oral tablet Dose : 10 mg = 1 tab(s), Oral, Every other day, # 15 tab(s), 0 Refill(s) Start Date: 03/01/20 Status: Ordered losartan potassium 25 mg oral tablet (7 sources) Angiotensin 2 Receptor Estrada Start: 07-27-2020 take 25 mg by mouth once daily Losartan Active 25 MG PO DAILY July 27, 2020 1:00am metFORMIN hydrochloride 500 mg oral tablet (8 sources) Biguanide Start: 03-08-2020 take 500 mg by mouth once daily Metformin Active 500 MG PO DAILY July 27, 2020 1:00am Multivitamin preparation (1 source) Start: 04-07-2019 take 1 tablet by mouth once daily Multivitamin Dose = 1 tab(s), Oral, Daily, 0 Refill(s) Start Date: 04/07/19 Status: Ordered ondansetron 4 mg disintegrating oral tablet (3 sources) Serotonin-3 Receptor Antagonist Start: 04-27-2023 take 4 mg by mouth three times daily Ondansetron Active 4 MG PO THREE TIMES A DAY April 27, 2023 3:13am potassium nitrate 0.05 mg/mg / sodium fluoride 0.011 mg/mg toothpaste (3 sources) Start: 04-27-2023 Sodium Fluoride-Pot Nitrate [Sodium Fluoride 1.1 %-Potassium Nitrate 5 % Dental Paste] (Sodium Fluoride 1.1 %-Potassium Nitrate 5 % Dental ) 1.1-5 % paste Active 1 APPLIC DENTAL DAILY April 27, 2023 12:00am Vitamin D3 (1 source) Start: 04-07-2019 Vitamin D3 Dose : 1,000 unit(s) = 1 tab(s), Oral, Daily, 0 Refill(s) Start Date: 04/07/19 Status: Ordered Completed/Discontinued Medications Medication Drug Class(es) Dates Sig (Normalized) Sig (Original) 24 hr buPROPion hydrochloride 300 mg extended release oral tablet (8 sources) Aminoketone Start: 11-18-2019 End: 11-12-2020 take 1 [...] Date: 11/18/19 Stop Date: 11/12/20 Status: Ordered Start: 11-26-2018 take 300 mg by mouth once samy y Bupropion Hcl Active 300 MG PO DAILY November 26, 2018 12:00am tiZANidine 4 mg oral capsule (7 sources) Central alpha-2 Adrenergic Agonist Start: 11-26-2018 End: 04-27-2023 take 0.5 tablet by mouth every six hours Tizanidine (Zanaflex) 4 MG capsule Discontinued 0.5 TABLET PO EVERY 6 HOURS November 26, 2018 12:00am April 27, 2023 12:30am Problems Active Problems Problem Classification Problem Date Documented Da te Episodic/Chronic Cancer of breast (8 sources) Malignant tumor of breast ; Translations: [Malignant neoplasm of unspecified site of left female breast] 11-30-2018 Chronic Cancer of breast (7 sources) History of malignant neoplasm of breast; Translations: [Personal history of malignant neoplasm of breast] 11-30-2018 Episodic Diabetes mellitus with complications (1 source) Type II diabetes mellitus uncontrolled 03-08-2020 Chronic Diabetes mellitus without complication (3 sources) Diabetes mellitus; Translations: [Type 2 diabetes mellitus without complications] Onset: 05-05-2024 05-05-2023 Chronic Diseases of mouth; excluding dental (2 sources) Oral lesion; Translations: [Ulcer of mouth] 06-15-2019 Episodic Disorders of lipid metabolism (1 source) Hyperlipidemia 03-08-2020 Chronic Fever of unknown origin (3 sources) Fever; Translations: [Fever, unspecified] 04-27-2023 Episodic Mood disorders (1 source) Depressive disorder 04-07-2019 Chronic Mycoses (1 source) Candidiasis 03-01-2020 Episodic Osteoporosis (1 source) Osteoporosis 04-07-2019 Chronic Other bone disease and musculoskeletal deformities (1 source) Somatic dysfunction of sacral region 04-07-2019 Episodic Other non-traumatic joint disorders (1 source) Pain in right shoulder; Translations: [Pain in right shoulder] Onset: 08-18-2024 Episodic Rheumatoid arthritis and related disease (1 source) Inflammatory polyarthropathy; Translations: [Inflammatory polyarthropathy] Onset: 09-29-2024 Chronic Spondylosis; intervertebral disc disorders; other back problems (2 sources) Low back pain; Translations: [Spasm of back muscles] 04-07-2019 Episodic Thyroid disorders (1 source) Hypothyroidism 03-01-2020 Chronic Unclassified (5 sources) Patient encounter status 03-01-2020 Viral infection (3 sources) Viral disease; Translations: [Viral infection, unspecified] 04-27-2023 Episodic Past or Other Problems Problem Classification Problem Date Documented Da te Episodic/Chronic Other lower respiratory disease (2 sources) Disorders of diaphragm; Translations: [Disorders of diaphragm] Onset: 05-06-2024 Episodic Other lower respiratory disease (1 source) Shortness of breath; Translations: [Shortness of breath] Onset: 05-14-2024 Episodic Results Test Name Value Interpretation Reference Range Facility Lipid Profileon 10-18-2024 Cholesterol [Mass/Vol] 153 mg/dL Normal 200 [facility] Comment on above: Result Comment: <200 mg/dL Desirable 200-240 mg/dL Borderline >240 mg/dL High Risk Performed By: #### L 500.4100, L501.9520, L506.0400 #### [facility] [address] [place], [address] Cholesterol in HDL [Mass/Vol] 57 mg/dL Normal [facility] Comment on above: Result Comment: The drugs N-Acetylcysteine and Metamizole may falsely depress this assay. Reference Range HDL <40 mg/dL Low HDL Cholesterol HDL >or= 60 mg/dL High HDL Cholesterol Performed By: #### L 500.4100, L501.9520, L506.0400 #### [facility] [address] [place], [address] Cholesterol in LDL [Mass/Vol] 73 mg/dL Normal 0-130 [facility] Comment on above: Performed By: #### L 500.4100, L501.9520, L506.0400 #### [facility] [address] [place], [address] Cholesterol in VLDL [Mass/Vol] 23 mg/dL Normal 5-40 [facility] Comment on above: Performed By: #### L 500.4100, L501.9520, L506.0400 #### [facility] [address] [place], [address] Triglyceride [Mass/Vol] 116 mg/dL Normal [facility] Comment on above: Result Comment: The drugs N-Acetylcysteine and Metamizole may falsely depress this assay. Serum Triglycerides Reference Interval Normal <150 mg/dL Borderline high 150 - 199 mg/dL High 200 - 499 mg/dL Very High > or = 500 mg/dL Performed By: #### L 500.4100, L501.9520, L506.0400 #### [facility] [address] [place], [address] T4 Free Directon 10-18-2024 T4 FREE DIRECT 1.11 ng/dL Normal 0.76-1.46 [facility] Comment on above: Performed By: #### L 500.4100, L501.9520, L506.0400 #### [facility] [address] [place], [address] Thyroid Stim Hormone (TSH)on 10-18-2024 TSH 1.460 uIU/mL Normal 0.358-3.740 [facility] Comment on above: Performed By: #### L 500.4100, L501.9520, L506.0400 #### [facility] [address] [place], [address] CBC W/Diff, Automatedon 12- Absolute Lymph 0.73 X10 3/uL Low 0.83-4.51 [facility] Comment on above: Performed By: #### L 500.4050, L100.0100 #### [facility] [address] [place], [address] Absolute Neut 2.8 X10 3/uL Normal 2.0-7.7 [facility] Comment on above: Performed By: #### L 500.4050, L100.0100 #### [facility] [address] [place], [address] Basophils/100 WBC (Bld) 1.7 % High 0-1 [facility] Comment on above: Performed By: #### L 500.4050, L100.0100 #### [facility] [address] [place], [address] Eosinophils/100 WBC (Bld) 2.5 % Normal 0-5 [facility] Comment on above: Performed By: #### L 500.4050, L100.0100 #### [facility] [address] [place], [address] Erythrocyte distribution width (RBC) [Ratio] 13.9 % Normal 11.6-14.6 [facility] Comment on above: Performed By: #### L 500.4050, L100.0100 #### [facility] [address] [place], [address] Hematocrit (Bld) [Volume fraction] 40.3 % Normal 37-47 [facility] Comment on above: Performed By: #### L 500.4050, L100.0100 #### [facility] [address] [place], [address] Hemoglobin (Bld) [Mass/Vol] 13.5 g/dL Normal 12.0-15. 0 [facility] Comment on above: Performed By: #### L 500.4050, L100.0100 #### [facility] [address] [place], [address] IG% 0.200 Normal 0.0-0.9 [facility] Comment on above: Result Comment: IG% - Immature Granulocytes (promyelocytes, myelocytes and metamyelocytes) > 1% indicates that a LEFT SHIFT is Present. Performed By: #### L 500.4050, L100.0100 #### [facility] [address] [place], [address] Lymphocytes/100 WBC (Bld) 18.2 % Low 19-41 [facility] Comment on above: Performed By: #### L 500.4050, L100.0100 #### [facility] [address] [place], [address] MCH (RBC) [Entitic mass] 29.8 pg Normal 27.0-32.0 [facility] Comment on above: Performed By: #### L 500.4050, L100.0100 #### [facility] [address] [place], [address] MCHC (RBC) [Mass/Vol] 33.5 g/dL Normal 32-36 [facility] Comment on above: Performed By: #### L 500.4050, L100.0100 #### [facility] [address] [place], [address] MCV (RBC) [Entitic vol] 89.0 fL Normal 81-99 [facility] Comment on above: Performed By: #### L 500.4050, L100.0100 #### [facility] [address] [place], [address] Monocytes/100 WBC (Bld) 7.5 % Normal 0-10 [facility] Comment on above: Performed By: #### L 500.4050, L100.0100 #### [facility] [address] [place], [address] Neutrophils/100 WBC (Bld) 69.9 % Normal 47-70 [facility] Comment on above: Performed By: #### L 500.4050, L100.0100 #### [facility] [address] [place], [address] Nucleated RBC (Bld) [#/Vol] 0 10*3/uL Normal 0-5 [facility] Comment on above: Performed By: #### L 500.4050, L100.0100 #### [facility] [address] [place], [address] Platelet mean volume (Bld) [Entitic vol] 10.3 fL Normal 6.2-12.0 [facility] Comment on above: Performed By: #### L 500.4050, L100.0100 #### [facility] [address] [place], [address] Platelets (Bld) [#/Vol] 178 10*3/uL Normal 150-450 [facility] Comment on above: Performed By: #### L 500.4050, L100.0100 #### [facility] [address] [place], [address] RBC (Bld) [#/Vol] 4.53 10*6/uL Normal 4.2-5.4 [facility] Comment on above: Performed By: #### L 500.4050, L100.0100 #### [facility] [address] [place], [address] RDW SD 45.1 fl High 35.1-43.9 [facility] Comment on above: Performed By: #### L 500.4050, L100.0100 #### [facility] [address] [place], [address] WBC (Bld) [#/Vol] 4.0 10*3/uL Low 4.4-11.0 [facility] Comment on above: Performed By: #### L 500.4050, L100.0100 #### [facility] [address] [place], [address] Comprehensive Metabolic [facility] 08-27-2024 Albumin [Mass/Vol] 4.1 g/dL Normal 3.2-5.0 [facility] Comment on above: Performed By: #### L 500.4050, L100.0100 #### [facility] [address] [place], [address] Albumin/Globulin [Mass ratio] 1.5 {ratio} Normal 0.9-2.4 [facility] Comment on above: Performed By: #### L 500.4050, L100.0100 #### [facility] [address] [place], [address] ALK P 90 U/L Normal 45-117 [facility] Comment on above: Performed By: #### L 500.4050, L100.0100 #### [facility] [address] [place], [address] ALT [Catalytic activity/Vol] 25 U/L Normal 13-56 [facility] Comment on above: Performed By: #### L 500.4050, L100.0100 #### [facility] [address] [place], [address] AST [Catalytic activity/Vol] 17 U/L Normal 15-37 [facility] Comment on above: Performed By: #### L 500.4050, L100.0100 #### [facility] [address] [place], [address] Bilirubin [Mass/Vol] 0.60 mg/dL Normal 0.20-1.00 [facility] Comment on above: Result Comment: For patients on eltrombopag therapy, use of Dimension [place] TBIL is not recommended. Performed By: #### L 500.4050, L100.0100 #### [facility] [address] [place], [address] BUN/CRE 15.8 RATIO Normal 10-20 [facility] Comment on above: Performed By: #### L 500.4050, L100.0100 #### [facility] [address] [place], [address] CA,Total 10.3 mg/dL High 8.5-10.1 [facility] Comment on above: Performed By: #### L 500.4050, L100.0100 #### [facility] [address] [place], [address] Chloride [Moles/Vol] 109 mmol/L High 98-107 [facility] Comment on above: Performed By: #### L 500.4050, L100.0100 #### [facility] [address] [place], [address] CO2 [Moles/Vol] 27.0 mmol/L Normal 21.0-32.0 [facility] Comment on above: Performed By: #### L 500.4050, L100.0100 #### [facility] [address] [place], [address] Creatinine [Mass/Vol] 0.95 mg/dL Normal 0.55-1.02 [facility] Comment on above: Result Comment: The validity of the calculated GFR GFRAA in patients over 70 years has not been determined. Clinical correlation is essential. Performed By: #### L 500.4050, L100.0100 #### [facility] [address] [place], [address] EST GFR - AA 76 mL/min Normal >60 [facility] Comment on above: Result Comment: Afri can Cam[place]onian GFR Calc Performed By: #### L 500.4050, L100.0100 #### [facility] [address] [place], [address] GAP 4 Low 5-15 [facility] Comment on above: Performed By: #### L 500.4050, L100.0100 #### [facility] [address] [place], [address] GFR/1.73 sq M.predicted among non-blacks MDRD (S/P/Bld) [Vol rate/Area] 63 mL/min/{1.73_m2} Normal >60 [facility] Comment on above: Result Comment: Non- GFR Calc Performed By: #### L 500.4050, L100.0100 #### [facility] [address] [place], [address] Globulin (S) [Mass/Vol] 2.7 g/dL Normal 2.2-4.2 [facility] Comment on above: Performed By: #### L 500.4050, L100.0100 #### [facility] [address] [place], [address] Glucose [Mass/Vol] 174 mg/dL High 74-106 [facility] Comment on above: Result Comment: Fast ing Glucose result greater than or equal to 126 mg/dL suggests DIABETES MELLITUS per A.D.A. criteria. Performed By: #### L 500.4050, L100.0100 #### [facility] [address] [place], [address] Potassium [Moles/Vol] 4.1 mmol/L Normal 3.5-5.1 [facility] Comment on above: Performed By: #### L 500.4050, L100.0100 #### [facility] [address] [place], [address] Sodium [Moles/Vol] 140 mmol/L Normal 136-145 [facility] Comment on above: Performed By: #### L 500.4050, L100.0100 #### [facility] [address] [place], [address] T PROT 6.8 g/dL Normal 6.4-8.2 [facility] Comment on above: Performed By: #### L 500.4050, L100.0100 #### [facility] [address] [place], [address] Urea nitrogen [Mass/Vol] 15 mg/dL Normal 7-18 [facility] Comment on above: Performed By: #### L 500.4050, L100.0100 #### [facility] [address] [place], [address] PT D/C Summary (1)on 024 PT D/C Summary (1) [facility] [address] [place] [address] / REHABILITATION SERVICES DISCHARGE SUMMARY MR#: [id number] Acct: [id number] Name: IRAIDA SHORT Rep #: [id number] : 1960 64 From: Fredy Chavis PT Cert. T, OCS Referring Dr.: Dr. Sarah Ng MD Status: RE G RCR Insurance: [employer] INSURANCE Discharge Summary D/C summary: It has been my pleasure to treat IRAIDA SHORT referred by Dr. Sarah Ng MD, with the diagnosis of RIGHT SHOULDER PAIN for a total of 8 visit(s). Discharge Date: Please see the following information for a summary of their discharge status. Subjective Subjective: Patient is doing great able to do all housework /yard work. Pain Left Shoulder: Pain Intensity (Out of 10): 0 Right Shoulder: Pain Intensity (Out of 10): 0 Overall Improvement % Improvement: 100 Objective Objective/Function : POSTURE:mild forward posture PALAPTION: : tender bicipital grove long head NEURO: denies paresthesia/tingli ng AROM: shoulder flexion 170 degrees ,abduction 180 degrees ,ER 90 degrees ,IR T10 MMT: RTC 4/5 ,DELTOID 4-/5 Goals Goal 1:: Patient to be I with shoulder Goal Progress: Goal Met Goal 2:: Patient to improve shoulder quick dash by 5 points to improve QOL and function Goal Progress: Goal Met Goal 3:: Patient to demonstrate 60% improvement with less pain and improved function with yardwork Goal Progress: Goal Met Goal 4:: Patient to improve ability to do yard work and housework with no pain Goal Progress: Goal Met Goal Progress: Goal Met Plan Plan: D/C D/C Information d/c sentence: If there are questions or concerns regarding this patient's physical therapy, please feel free to call me at [phone]. Thank you for the referral of this patient. Sincerely, Fredy Chavis, PT, Cert T, OCS Balance/Gait/Funct ional tests Balance/Special Test Scores Quick DASH Score: 0 Improvement % Improvement: 100 08/17/24 1059 CC: Dr. Sarah Ng MD NORTH Signed Normal [facility] Chest without Contraston Chest without Contrast [facility] Imaging Services [address] [place], [place] [address] Chest without Contrast MR#: [id number] Acct: [id number] Name: IRAIDA SHORT Rep #: [id number] : 1960 F 63 From: Usama Cunningham MD PCP: Dr. Sarah Ng MD Status: REG CLI Study: Chest without Contrast Date of Exam: 05/21/24 Exam# [id number] Ordering Dr: Sarah Ng MD [id number] EXAM: CT CHEST WITHOUT INTRAVENOUS CONTRAST CLINICAL INDICATION: Disorders of diaphragm TECHNIQUE: Helically acquired images were obtained of the chest without intravenous contrast. This CT exam was performed using one or more of the following dose reduction techniques: automated exposure control, adjustment of the mA and/or kV according to patient size, and/or use of iterative reconstruction technique. RADIATION DOSE: CTDIvol = 16.76 mGy, DLP = 531.83 mGy-cm COMPARISON: Chest radiographs 04/27/2023 and 04/15/2024. FINDINGS: LUNGS AND PLEURAL SPACES: Mild compressive atelectasis of the right posterior lung base with minimal air bronchograms. No mass. No pleural effusion or thickening. HEART: Unremarkable. Heart size is normal. No pericardial effusion. No significant coronary artery calcifications. MEDIASTINUM: Unremarkable. No mediastinal or hilar adenopathy. Esophagus is unremarkable. No hiatal hernia. THYROID: Unremarkable. No thyroid lesions. BONES/JOINTS: Pronounced T11-T12 disc space height narrowing with endplate sclerosis. No lytic or blastic lesions. Small low-attenuation lesion in the right posterior renal parenchyma with CT number of 19.74 Hounsfield units measures 11 mm long. This is most likely cyst. Mild S-shaped scoliosis of the thoracolumbar spine. VASCULATURE: Unremarkable. Thoracic aorta is non-dilated. 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 0.[address]/Chest without Contrast IMPRESSION: 1. 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 2. No CT evidence of any lung mass or lymphadenopathy in the chest. 3. Compressive atelectasis of right lung base containing some air bronchograms. Superimposed pneumonia cannot be excluded. 4. 11 mm low-attenuation lesion in the right posterior renal parenchyma with CT number of 19.74 Hounsfield units. ACR White Paper guidelines (Herts, et al. JACR 2018; 15(2):264-273) suggest no follow-up is necessary. Electronically Signed: Usama Cunningham MD at 8:48 EDT , CC: Dr. Sarah Ng MD Customer Records Division Supervisor: Signed Normal [facility] Fluoroscopy 1 Hr or Lesson 0 05-21-2024 Fluoroscopy 1 Hr or Less [facility] Imaging Services [address] [place] [id number] Fluoroscopy 1 Hr or Less MR#: [id number] Acct: [id number] Name: IRAIDA SHORT Rep #: [id number] : 1960 F 63 From: Everardo lantigua MD PCP: Dr. Sarah Ng MD Status: REG CL Study: Fluoroscopy 1 Hr or Less Date of Exam: 4 Exam# [id number] Ordering Dr: Sarah Ng MD [id number] PROCEDURE: Sniff test. DATE OF EXAMINATION: May 21, 2024. INDICATION: Female, 63 years old. Elevation of the right hemidiaphragm. FLUOROSCOPY TIME (if supplied): (27 seconds) minutes/seconds. 67.3 mGy. RAD/Fluoroscopy 1 Hr or Less IMPRESSION: There is elevation of the right hemidiaphragm. There is normal movement of both hemidiaphragms. Electronically Signed: Everardo Bryson MD at 8:47 EDT , CC: Dr. Sarah Ng MD Customer Records Division Supervisor: Signed Normal [facility] Chest PA and Lateralon 04-15 Chest PA and Lateral [facility] Imaging Services [address] [place], [place] [id number] Chest PA and Lateral MR#: [id number] Acct: [id number] Name: IRAIDA SHORT Rep #: [id number] : 1960 F 63 From: Jeffry Ortega MD PCP: Dr. Sarah Ng MD Status: REG CLI Study: Chest PA and Lateral Date of Exam: 04/15/24 Exam# [id number] Ordering Dr: Sarah Ng MD [id number] EXAM: XR CHEST, 2 VIEWS CLINICAL INDICATION: NEW SOB TECHNIQUE: Frontal and lateral views of the chest. COMPARISON: XR Chest dated 04/27/2023 FINDINGS: LUNGS AND PLEURAL SPACES: Mild atelectasis of the right lower lobe. HEART: Normal heart size. MEDIASTINUM: No mediastinal or hilar mass. BONES/JOINTS: S-shaped scoliosis of the thoracolumbar spine again noted. UPPER ABDOMEN: Prominent elevation of the right hemidiaphragm. RAD/Chest PA and Lateral IMPRESSION: Elevated right hemidiaphragm associated with atelectatic changes of the right lower lobe Electronically Signed: Jeffry Ortega MD at 9:37 EDT , CC: Dr. Sarah Ng MD Customer Records Division Supervisor: Signed [facility] Microalb:Creat Ratio,Random URon 04-13-2024 Creatinine [Mass/Vol] 74.80 mg/dL Normal NO RAN GE EST. [facility] Comment on above: Performed By: #### L 502.0250 #### [facility] Laboratory [address] [place], [place], [address] MALB:CRE 10.9 mg/g CRE Normal <30 mg/g CRE [facility] Comment on above: Performed By: #### L 502.0250 #### [facility] Laboratory [address] [place], [place], [id number] MICROALBUMIN,UR 8.2 mg/L Normal NO RANGE EST. [facility] Comment on above: Performed By: #### L 502.0250 #### [facility] Laboratory [address] [place], [place], [id number] Inital Evaluation (1) - PTon 04-05-2024 Inital Evaluation (1) - PT [facility] Physical Therapy Health[address] [place] [address] / REHABILITATION SERVICES INITIAL EVALUATION MR#: [id number] Acct: [id number] Name: IRAIDA SHORT Rep #: [id number] : 1960 63 From: Neil Verduzco PT. T, OCS Referring Dr.: Dr. Sarah Ng MD Status: RE G R Insurance: [facility] SELF PAY INSURANCE Patient's Visit Information Visit Information Visit Information: IRAIDA SHORT is a 63 year old F referred to Physical Therapy by Dr. Sarah Ng MD with a diagnosis of RIGHT SHOULDER SHAKEEL. Date of Evaluation: 04/05/24 Physical Therapist: Fredy Chavis PT, Cert T, OCS Visit Plan Frequency: 2x /Week Duration: 4 Weeks Plan: PT INTERVENTIONS RTC/SCAPULAR STRENGTHENING ,POSTURAL EX'S AND MODALTIES TO LONG HEAD NEEDED Subjective Subjective: This 63 y/o female presents to physical therapy with right shoulder pain. Patient has had shoulder pain 1 month. Patient pain working in yard. Seen Dr recommended PT, anti-inflammatory naproxen. Pain located anterior shoulder pain ,described ore. Denies paresthesia/tingli ng. Aggravating supination ,digging in yard. No imaging. Alleviating factors ice ,rest medication.. Pain affects sleeping . Patient has no trauma or injury. Patient condition affects yard work and housework . Patient goals to decrease pain. SOCIAL: VOCATION: retired Pain Left Shoulder: Pain Intensity (Out of 10): 2 Pain Intensity Range: 10 Objective Objective: POSTURE:mild forward posture PALAPTION: : tender bicipital grove long head NEURO: denies paresthesia/tingli ng AROM: shoulder flexion 160 degrees ,abduction 160 degrees ,ER 90 degrees ,IR T10 MMT: RTC 4/5 ,DELTOID 4-/5 Special Tests R Shoulder Lift Off Test - Subscapular Tear: Negative R Shoulder Empty Can - SS: Negative R Shoulder Belly Press - SupScap: Negative R Shoulder Lynch Michael - Impingement: Negative R Shoulder Speeds Test - Labrum/Biceps: Positive R Shoulder AC Resisted - AC: Negative R Shoulder Shrug Sign - OA/Adhesive Capsulitis: Positive Balance/Special Test Scores Quick DASH Score: 29.5450 Goals Goal 1:: Patient to be I with shoulder Goal Time Frame: 4-6 Weeks Goal 2:: Patient to improve shoulder quick dash by 5 points to improve QOL and function Goal Time Frame: 4-6 Weeks Goal 3:: Patient to demonstrate 60% improvement with less pain and improved function with yardwork Goal Time Frame: 4-6 Weeks Goal 4:: Patient to improve ability to do yard work and housework with no pain Goal Time Frame: 4-6 Weeks Rehabilitation Potential Physical Therapy Diagnosis: This patient appears to have bicipital tendonitis with pain with supination and long head tender affects housework task thus benefit from skilled PT Rehabilitation Potential: Fair Anticipated Interventions Patient/Client Instruction: Educate patient on: Condition and Plan of Care For the Purpose of:: To decrease pain, To increase ROM, To improve muscle performance and motor function, To improve ability to perform ADL's, To increase tolerance to activity/condition /position, To improve ability of physical actions for home/community/wor k/leisure, To improve health of tissue, To decrease soft tissue restriction, To increase flexibility/ROM and To improve tolerance to ADL's Therapeutic Exercise to Include: Strength training, Postural training, Flexibilty training and Scapular Strength/Stabiliza tion Comment: RTC For the Purpose of:: To decrease pain, To increase ROM, To improve muscle performance and motor function, To improve ability to perform ADL's, To increase tolerance to activity/condition /position, To improve ability of physical actions for home/community/wor k/leisure, To improve health of tissue, To decrease soft tissue restriction and To increase flexibility/ROM TENS: Yes IF ES: Yes Cryotherapy (ice pack, ice massage): Yes Thermo therapy (hot pack): Yes Ultrasound (thermal/non thermal): Yes For the Purpose of:: To decrease pain, To increase ROM, To improve health of tissue, To decrease soft tissue restriction and To increase flexibility/ROM Text: Thank you for the opportunity to evaluate your patient. For Medicare and Medicare HMO plans, please review the plan of care and approve it. It will need to be FAXED BACK to us at [phone] for Medicare purposes. For Medicare only, by signing this I certify the plan of care. Please let me know if there are questions or concerns regarding this plan of care. Physician Signature: Date: ____ 04/05/24 1129 CC: Dr. Sarah Ng MD JLA Signed Normal [facility] CBC W/Diff, Automatedon - Absolute Lymph 0.96 X10 3/uL Normal 0.83-4.51 [facility] Comment on above: Performed By: #### L 500.4050, L100.0100 #### [facility] Laboratory [address] [place], [place], [id number] Absolute Neut 2.4 X10 3/uL Normal 2.0-7.7 [facility] Comment on above: Performed By: #### L 500.4050, L100.0100 #### [facility] Laboratory [address] [place], [address] Basophils/100 WBC (Bld) 1.7 % High 0-1 [facility] Comment on above: Performed By: #### L 500.4050, L100.0100 #### [facility] Laboratory [address] [place], [address] Eosinophils/100 WBC (Bld) 4.2 % Normal 0-5 [facility] Comment on above: Performed By: #### L 500.4050, L100.0100 #### [facility] [address] [place], [address] Erythrocyte distribution width (RBC) [Ratio] 13.7 % Normal 11.6-14.6 [facility] Comment on above: Performed By: #### L 500.4050, L100.0100 #### [facility] [address] [place], [address] Hematocrit (Bld) [Volume fraction] 41.7 % Normal 37-47 [facility] Comment on above: Performed By: #### L 500.4050, L100.0100 #### [facility] [address] [place], [address] Hemoglobin (Bld) [Mass/Vol] 13.0 g/dL Normal 12.0-15. 0 [facility] Comment on above: Performed By: #### L 500.4050, L100.0100 #### [facility] [address] [place], [address] IG% 0.200 Normal 0.0-0.9 [facility] Comment on above: Result Comment: IG% - Immature Granulocytes (promyelocytes, myelocytes and metamyelocytes) > 1% indicates that a LEFT SHIFT is Present. Performed By: #### L 500.4050, L100.0100 #### [facility] [address] [place], [address] Lymphocytes/100 WBC (Bld) 23.8 % Normal 19-41 [facility] Comment on above: Performed By: #### L 500.4050, L100.0100 #### [facility] [address] [place], [address] MCH (RBC) [Entitic mass] 28.8 pg Normal 27.0-32.0 [facility] Comment on above: Performed By: #### L 500.4050, L100.0100 #### [facility] [address] [place], [address] MCHC (RBC) [Mass/Vol] 31.2 g/dL Low 32-36 [facility] Comment on above: Performed By: #### L 500.4050, L100.0100 #### [facility] [address] [place], [address] MCV (RBC) [Entitic vol] 92.3 fL Normal 81-99 [facility] Comment on above: Performed By: #### L 500.4050, L100.0100 #### [facility] [address] [place], [address] Monocytes/100 WBC (Bld) 11.2 % High 0-10 [facility] Comment on above: Performed By: #### L 500.4050, L100.0100 #### [facility] [address] [place], [address] Neutrophils/100 WBC (Bld) 58.9 % Normal 47-70 [facility] Comment on above: Performed By: #### L 500.4050, L100.0100 #### [facility] [address] [place], [address] Nucleated RBC (Bld) [#/Vol] 0 10*3/uL Normal 0-5 [facility] Comment on above: Performed By: #### L 500.4050, L100.0100 #### [facility] [address] [place], [address] Platelet mean volume (Bld) [Entitic vol] 11.0 fL Normal 6.2-12.0 [facility] Comment on above: Performed By: #### L 500.4050, L100.0100 #### [facility] [address] [place], [address] Platelets (Bld) [#/Vol] 235 10*3/uL Normal 150-450 [facility] Comment on above: Performed By: #### L 500.4050, L100.0100 #### [facility] [address] [place], [address] RBC (Bld) [#/Vol] 4.52 10*6/uL Normal 4.2-5.4 [facility] Comment on above: Performed By: #### L 500.4050, L100.0100 #### [facility] [address] [place], [address] RDW SD 46.5 fl High 35.1-43.9 [facility] Comment on above: Performed By: #### L 500.4050, L100.0100 #### [facility] [address] [place], [address] WBC (Bld) [#/Vol] 4.0 10*3/uL Low 4.4-11.0 [facility] Comment on above: Performed By: #### L 500.4050, L100.0100 #### [facility] [address] [place], [address] Comprehensive Metabolic Prof [facility] 03-16-2024 Albumin [Mass/Vol] 4.4 g/dL Normal 3.2-5.0 [facility] Comment on above: Performed By: #### L 500.4050, L100.0100 #### [facility] [address] [place], [address] Albumin/Globulin [Mass ratio] 1.6 {ratio} Normal 0.9-2.4 [facility] Comment on above: Performed By: #### L 500.4050, L100.0100 #### [facility] [address] [place], [address] ALK P 91 U/L Normal 45-117 [facility] Comment on above: Performed By: #### L 500.4050, L100.0100 #### [facility] [address] [place], [address] ALT [Catalytic activity/Vol] 30 U/L Normal 13-56 [facility] Comment on above: Performed By: #### L 500.4050, L100.0100 #### [facility] [address] [place], [address] AST [Catalytic activity/Vol] 18 U/L Normal 15-37 [facility] Comment on above: Performed By: #### L 500.4050, L100.0100 #### [facility] [address] [place], [address] Bilirubin [Mass/Vol] 0.50 mg/dL Normal 0.20-1.00 [facility] Comment on above: Result Comment: For patients on eltrombopag therapy, use of Dimension [place] TBIL is not recommended. Performed By: #### L 500.4050, L100.0100 #### [facility] [address] [place], [address] BUN/CRE 21.6 RATIO High 10-20 [facility] Comment on above: Performed By: #### L 500.4050, L100.0100 #### [facility] [address] [place], [address] CA,Total 9.6 mg/dL Normal 8.5-10.1 [facility] Comment on above: Performed By: #### L 500.4050, L100.0100 #### [facility] [address] [place], [address] Chloride [Moles/Vol] 109 mmol/L High 98-107 [facility] Comment on above: Performed By: #### L 500.4050, L100.0100 #### [facility] [address] [place], [address] CO2 [Moles/Vol] 25.0 mmol/L Normal 21.0-32.0 [facility] Comment on above: Performed By: #### L 500.4050, L100.0100 #### [facility] [address] [place], [address] Creatinine [Mass/Vol] 1.02 mg/dL Normal 0.55-1.02 [facility] Comment on above: Result Comment: The validity of the calculated GFR GFRAA in patients over 70 years has not been determined. Clinical correlation is essential. Performed By: #### L 500.4050, L100.0100 #### [facility] [address] [place], [address] EST GFR - AA 71 mL/min Normal >60 [facility] Comment on above: Result Comment: Afri can Cameroonian GFR Calc Performed By: #### L 500.4050, L100.0100 #### [facility] [address] [place], [address] GAP 6 Normal 5-15 [facility] Comment on above: Performed By: #### L 500.4050, L100.0100 #### [facility] [address] [place], [address] GFR/1.73 sq M.predicted among non-blacks MDRD (S/P/Bld) [Vol rate/Area] 58 mL/min/{1.73_m2} Low >60 [facility] Comment on above: Result Comment: Non- GFR Calc Performed By: #### L 500.4050, L100.0100 #### [facility] [address] [place], [address] Globulin (S) [Mass/Vol] 2.7 g/dL Normal 2.2-4.2 [facility] Comment on above: Performed By: #### L 500.4050, L100.0100 #### [facility] [address] [place], [address] Glucose [Mass/Vol] 129 mg/dL High 74-106 [facility] Comment on above: Result Comment: Fast ing Glucose result greater than or equal to 126 mg/dL suggests DIABETES MELLITUS per A.D.A. criteria. Performed By: #### L 500.4050, L100.0100 #### [facility] [address] [place], [address] Potassium [Moles/Vol] 4.1 mmol/L Normal 3.5-5.1 [facility] Comment on above: Performed By: #### L 500.4050, L100.0100 #### [facility] [address] [place], [address] Sodium [Moles/Vol] 140 mmol/L Normal 136-145 [facility] Comment on above: Performed By: #### L 500.4050, L100.0100 #### [facility] [address] [place], [address] T PROT 7.1 g/dL Normal 6.4-8.2 [facility] Comment on above: Performed By: #### L 500.4050, L100.0100 #### [facility] [address] [place], [address] Urea nitrogen [Mass/Vol] 22 mg/dL High 7-18 [facility] Comment on above: Performed By: #### L 500.4050, L100.0100 #### [facility] [address] [place], [address] Absolute lymphocyte countOrd ered By: Sarah Ng on 10-10-2023 Lymphocytes Auto (Unsp spec) [#/Vol] 0.86 10*3/uL 0.83-4.51 [facility] Automated lymphocyte count a s percentage of total leukocytesOrdered By: Sarah Ng on 10-10-2023 Lymphocytes/100 WBC Auto (Unsp spec) 22.6 % 19-41 [facility] Basophil percentageOrdered B y: Sarah Ng on 10-10-2023 Basophils/100 WBC (Bld) 1.3 % 0-1 [facility] Cholesterol [Mass/Vol] 142 mg/dL <200 [facility] Comment on above: <200 mg/dL Desirable 200-240 mg/dL Borderline >240 mg/dL High Risk Eosinophils/100 WBC (Bld) 7.1 % 0-5 [facility] Hemoglobin (Bld) [Mass/Vol] 12.6 g/dL 12.0-15. 0 [facility] Monocytes/100 WBC (Bld) 10.0 % 0-10 [facility] Neutrophils (Bld) [#/Vol] 2.2 10*3/uL 2.0-7.7 [facility] Neutrophils/100 WBC (Bld) 58.7 % 47-70 [facility] Triglyceride [Mass/Vol] 104 mg/dL <199 [facility] Comment on above: The drugs N-Acetylcy steine and Metamizole may falsely depress this assay.Serum Triglycerides Reference Interval Normal <150 mg/dL Borderline high 150 - 199 mg/dL High 200 - 499 mg/dL Very High > or = 500 mg/dL WBC (Bld) [#/Vol] 3.8 10*3/uL 4.4-11.0 [facility] Determination of erythrocyte mean corpuscular volume (MCV)Ordered By: Sarah Ng on 10-10-2023 MCV (RBC) [Entitic vol] 90.1 fL 81-99 [facility] Erythrocyte distribution wid th ratioOrdered By: Sarah Ng on 10-10-2023 Erythrocyte distribution width (RBC) [Ratio] 14.1 % 11.6-14.6 [facility] Erythrocyte distribution wid th standard deviationOrdered By: Sarah Ng on 10-10-2023 Erythrocyte distribution width (RBC) [Entitic vol] 46.3 fL 35.1-43.9 [facility] Hematocrit Auto (Bld) [Volum e fraction]Ordered By: Sarah Ng on 10-10-2023 Hematocrit (Bld) [Volume fraction] 39.9 % 37-47 [facility] High density lipoprotein (HD L) measurementOrdered By: Sarah Ng on 10-10-2023 Cholesterol in HDL (Body fld) [Mass/Vol] 60 mg/dL >40 [facility] Comment on above: The drugs N-Acetylcy steine and Metamizole may falsely depress this assay. Reference Range HDL <40 mg/dL Low HDL Cholesterol HDL >or= 60 mg/dL High HDL Cholesterol Immature granulocytes/100 WB C Auto (Bld)Ordered By: Sarah Ng on 10-10-2023 Immature granulocytes/100 WBC (Bld) 0.300 % 0.0-0.9 [facility] [facility] Comment on above: IG% - Immature Granu locytes (promyelocytes, myelocytes and metamyelocytes) > 1% indicates that a LEFT SHIFT is Present. Laboratory - Hematology and Cell countsOrdered By: Sarah Ng on 10-10-2023 MCH (RBC) [Entitic mass] 28.4 pg 27.0-32.0 [facility] MCHC (RBC) [Mass/Vol] 31.6 g/dL 32-36 [facility] Nucleated RBC/100 WBC (Bld) [Ratio] 0 % 0-5 [facility] Platelets (Bld) [#/Vol] 187 10*3/uL 150-450 [facility] Low density lipoprotein (LDL ) cholesterol measurementOrdered By: Sarah Ng on 10-10-2023 Cholesterol in LDL (Body fld) [Moles/Vol] 61 mg/dL 0-130 [facility] Platelet mean volume Luis Armando-Ec ker (Bld) [Entitic vol]Ordered By: Sarah Ng on 10-10-2023 Platelet mean volume (Bld) [Entitic vol] 10.6 fL 6.2-12.0 [facility] RBC Auto (Bld) [#/Vol]Ordere d By: Sarah Ng on 10-10-2023 RBC (Bld) [#/Vol] 4.43 10*6/uL 4.2-5.4 [facility] Serum or plasma thyroid stim ulating hormone (TSH) measurement (units/volume)Ordered By: Sarah Ng on 10-10-2023 TSH Qn 1.14 uIU/mL 0.358-3.74 [facility] Thin prep Papanicolaou smear with manual screeningOrdered By: Sarah Ng on 10-10-2023 Thin prep Papanicolaou smear with manual screening 7.4 mg/L NO RANGE EST. [facility] Thin prep Papanicolaou smear with manual screening 1.10 ng/dL 0.76-1.46 [facility] Urine albumin/creatinine rat io for detection of microalbuminuriaOrdered By: Sarah Ng on 10-10-2023 Albumin/Creatinine DL <= 1.0 mg/L (24H U) [Ratio] 7.5 mg/g CRE <30 [facility] Urine creatinine measurement (mass/volume)Ordered By: Sarah Ng on 10-10-2023 Creatinine (U) [Mass/Vol] 99.50 mg/dL NO RANGE EST. [facility] Very low density lipoprotein (VLDL) cholesterol measurementOrdered By: Sarah Ng on 10-10-2023 Cholesterol in VLDL Calc [Moles/Vol] 21 mg/dL 5-40 [facility] Absolute lymphocyte countOrd ered By: Rula Healy on 09-22-2023 Lymphocytes Auto (Unsp spec) [#/Vol] 0.80 10*3/uL 0.83-4.51 [facility] Basophil percentageOrdered B y: Rula Healy on 09-22-2023 Basophils/100 WBC (Bld) 1.5 % 0-1 [facility] Bilirubin [Mass/Vol] 0.70 mg/dL 0.20-1.00 [facility] Comment on above: For patients on eltr ombopag therapy, use of Dimension [place] TBIL is not recommended. Chloride [Moles/Vol] 111 mmol/L 98-107 [facility] Eosinophils/100 WBC (Bld) 5.3 % 0-5 [facility] Glucose [Mass/Vol] 150 mg/dL 74-106 [facility] Comment on above: Fasting Glucose resu lt greater than or equal to 126 mg/dL suggests DIABETES MELLITUS per A.D.A. criteria. Neutrophils (Bld) [#/Vol] 2.6 10*3/uL 2.0-7.7 [facility] Neutrophils/100 WBC (Bld) 65.4 % 47-70 [facility] Potassium [Moles/Vol] 4.3 mmol/L 3.5-5.1 [facility] Protein [Mass/Vol] 6.6 g/dL 6.4-8.2 [facility] Sodium [Moles/Vol] 142 mmol/L 136-145 [facility] WBC (Bld) [#/Vol] 4.0 10*3/uL 4.4-11.0 [facility] Blood erythrocytes count (nu mber/volume)Ordered By: Rula Healy on 09-22-2023 RBC (Bld) [#/Vol] 4.39 10*6/uL 4.2-5.4 [facility] Blood hemoglobin measurement (mass/volume)Ordered By: Rula Healy on 09-22-2023 Hemoglobin (Bld) [Mass/Vol] 12.6 g/dL 12.0-15. 0 [facility] Blood lymphocytes/100 leukoc ytesOrdered By: Rula Healy on 09-22-2023 Lymphocytes/100 WBC (Bld) 20.0 % 19-41 [facility] Blood monocytes/100 leukocyt esOrdered By: Rula Healy on 09-22-2023 Monocytes/100 WBC (Bld) 7.5 % 0-10 [facility] Blood platelet mean volumeOr dered By: Rula Healy on 09-22-2023 Platelet mean volume (Bld) [Entitic vol] 10.9 fL 6.2-12.0 [facility] Determination of erythrocyte mean corpuscular volume (MCV)Ordered By: Rula Healy on 09-22-2023 MCV (RBC) [Entitic vol] 93.2 fL 81-99 [facility] Hematocrit Auto (Bld) [Volum e fraction]Ordered By: Rula Healy on 09-22-2023 Hematocrit (Bld) [Volume fraction] 40.9 % 37-47 [facility] Laboratory - Chemistry and C hemistry - challengeOrdered By: Rula Healy on 09-22-2023 ALP [Catalytic activity/Vol] 80 U/L 45-117 [facility] ALT [Catalytic activity/Vol] 27 U/L 13-56 [facility] CO2 [Moles/Vol] 26.0 mmol/L 21.0-32.0 [facility] Globulin (S) [Mass/Vol] 2.7 g/dL 2.2-4.2 [facility] Urea nitrogen/Creatinine [Mass ratio] 21.0 mg/mg 10-20 [facility] Laboratory - Hematology and Cell countsOrdered By: Rula Healy on 09-22-2023 Erythrocyte distribution width (RBC) [Entitic vol] 49.2 fL 35.1-43.9 [facility] Erythrocyte distribution width (RBC) [Ratio] 14.5 % 11.6-14.6 [facility] Immature granulocytes/100 WBC (Bld) 0.300 % 0.0-0.9 [facility] Comment on above: IG% - Immature Granu locytes (promyelocytes, myelocytes and metamyelocytes) > 1% indicates that a LEFT SHIFT is Present. MCH (RBC) [Entitic mass] 28.7 pg 27.0-32.0 [facility] Nucleated RBC/100 WBC (Bld) [Ratio] 0 % 0-5 [facility] MCHC Auto (RBC) [Mass/Vol]Or dered By: Rula Healy on 09-22-2023 MCHC (RBC) [Mass/Vol] 30.8 g/dL 32-36 [facility] No Panel InformationOrdered By: Rula Healy on 09-22-2023 Estimated GFR (MDRD) Amer 76 mL/min >60 [facility] Comment on above: GFR Calc Estimated GFR (MDRD) Non-Af Amer 63 mL/min >60 [facility] Comment on above: Non- GFR Calc Platelets bldOrdered By: Mitch Healy on 09-22-2023 Platelets (Bld) [#/Vol] 184 10*3/uL 150-450 [facility] Serum or plasma albumin lucho urement (mass/volume)Ordered By: Rula Healy on 09-22-2023 Albumin [Mass/Vol] 3.9 g/dL 3.2-5.0 [facility] Serum or plasma albumin/glob ulin mass ratioOrdered By: Rula Healy on 09-22-2023 Albumin/Globulin [Mass ratio] 1.4 {ratio} 0.9-2.4 [facility] Serum or plasma calcium lucho urement (mass/volume)Ordered By: Rula Healy on 09-22-2023 Calcium [Mass/Vol] 9.3 mg/dL 8.5-10.1 [facility] Serum or plasma creatinine m easurement (mass/volume)Ordered By: Rula Healy on 09-22-2023 Creatinine [Mass/Vol] 0.95 mg/dL 0.55-1.02 [facility] Comment on above: The validity of the calculated GFR & GFRAA in patients over 70 years has not been determined. Clinical correlation is essential. Serum or plasma urea nitroge n measurement (mass/volume)Ordered By: Rula Healy on 09-22-2023 Urea nitrogen [Mass/Vol] 20 mg/dL 7-18 [facility] Thin prep Papanicolaou smear with manual screeningOrdered By: Rula Healy on 09-22-2023 Thin prep Papanicolaou smear with manual screening 22 U/L 15-37 [facility] Thin prep Papanicolaou smear with manual screening 5 5-15 [facility] Absolute lymphocyte countOrd ered By: Van Alexandra on 04-27-2023 Lymphocytes Auto (Unsp spec) [#/Vol] 0.20 10*3/uL 0.83-4.51 [facility] Basophil percentageOrdered B y: Van Alexandra on 04-27-2023 Basophil percentage 0 SEEN /hpf 0-5 [facility] Basophils/100 WBC (Bld) 0.8 % 0-1 [facility] Bilirubin [Mass/Vol] 0.60 mg/dL 0.20-1.00 [facility] Comment on above: For patients on eltr ombopag therapy, use of Dim[place] TBIL is not recommended. Chloride [Moles/Vol] 107 mmol/L 98-107 [facility] Eosinophils/100 WBC (Bld) 1.2 % 0-5 [facility] Glucose [Mass/Vol] 184 mg/dL 74-106 [facility] Comment on above: Fasting Glucose resu lt greater than or equal to 126 mg/dL suggests DIABETES MELLITUS per A.D.A. criteria. Neutrophils (Bld) [#/Vol] 2.3 10*3/uL 2.0-7.7 [facility] Neutrophils/100 WBC (Bld) 88.9 % 47-70 [facility] Potassium [Moles/Vol] 4.3 mmol/L 3.5-5.1 [facility] Protein [Mass/Vol] 6.6 g/dL 6.4-8.2 [facility] Sodium [Moles/Vol] 138 mmol/L 136-145 [facility] WBC (Bld) [#/Vol] 2.5 10*3/uL 4.4-11.0 [facility] Bilirubin Test strip Ql (U)O rdered By: Van Alexandra on 04-27-2023 Bilirubin Ql (U) Negative Negative [facility] Blood erythrocytes count (nu mber/volume)Ordered By: Van Alexandra on 04-27-2023 RBC (Bld) [#/Vol] 3.93 10*6/uL 4.2-5.4 [facility] Blood hemoglobin measurement (mass/volume)Ordered By: Van Alexandra on 04-27-2023 Hemoglobin (Bld) [Mass/Vol] 11.1 g/dL 12.0-15. 0 [facility] Blood lymphocytes/100 leukoc ytesOrdered By: Van Alexandra on 04-27-2023 Lymphocytes/100 WBC (Bld) 7.9 % 19-41 [facility] Blood monocytes/100 leukocyt esOrdered By: Van Alexandra on 04-27-2023 Monocytes/100 WBC (Bld) 0.8 % 0-10 [facility] Blood platelet mean volumeOr dered By: Van Alexandra on 04-27-2023 Platelet mean volume (Bld) [Entitic vol] 10.5 fL 6.2-12.0 [facility] Determination of erythrocyte mean corpuscular volume (MCV)Ordered By: Van Alexandra on 04-27-2023 MCV (RBC) [Entitic vol] 90.1 fL 81-99 [facility] Direct bilirubinOrdered By: Van Alexandra on 04-27-2023 Bilirubin.direct [Mass/Vol] 0.17 mg/dL 0.00-0.3 0 [facility] Hematocrit Auto (Bld) [Volum e fraction]Ordered By: Van Alexandra on 04-27-2023 Hematocrit (Bld) [Volume fraction] 35.4 % 37-47 [facility] Influenza virus A and B and SARS-CoV-2 (COVID-19) Ag panel - Upper respiratory specimOrdered By: Van Alexandra on 04-27-2023 SARS-CoV-2 (COVID-19) RNA GERMAN+probe Ql (Resp) [facility] Ketones Test strip Ql (U)Ord ered By: Van Alexandra on 04-27-2023 Ketones Ql (U) Negative Negative [facility] Laboratory - Chemistry and C hemistry - challengeOrdered By: Van Alexandra on 04-27-2023 ALP [Catalytic activity/Vol] 86 U/L 45-117 [facility] ALT [Catalytic activity/Vol] 18 U/L 13-56 [facility] CO2 [Moles/Vol] 24.0 mmol/L 21.0-32.0 [facility] Globulin (S) [Mass/Vol] 3.3 g/dL 2.2-4.2 [facility] Lipase [Catalytic activity/Vol] 36 U/L 13-75 [facility] Comment on above: Please note:LIPASE r evised reference range effective 22. New Lipase methodology. Expected to produce lower values than the previous assay method. NEW Reference Range: 13 - 75 U/L Magnesium [Mass/Vol] 1.8 mg/dL 1.6-2.6 [facility] Urea nitrogen/Creatinine [Mass ratio] 22.9 mg/mg 10-20 [facility] Laboratory - Hematology and Cell countsOrdered By: Van Alexandra on 04-27-2023 Erythrocyte distribution width (RBC) [Entitic vol] 47.0 fL 35.1-43.9 [facility] Erythrocyte distribution width (RBC) [Ratio] 14.1 % 11.6-14.6 [facility] Immature granulocytes/100 WBC (Bld) 0.400 % 0.0-0.9 [facility] Comment on above: IG% - Immature Granu locytes (promyelocytes, myelocytes and metamyelocytes) > 1% indicates that a LEFT SHIFT is Present. MCH (RBC) [Entitic mass] 28.2 pg 27.0-32.0 [facility] Nucleated RBC/100 WBC (Bld) [Ratio] 0 % 0-5 [facility] MCHC Auto (RBC) [Mass/Vol]Or dered By: Van Alexandra on 04-27-2023 MCHC (RBC) [Mass/Vol] 31.4 g/dL 32-36 [facility] Mucus LM Ql (Urine sed)Order ed By: Van Alexandra on 04-27-2023 Mucus Ql (Urine sed) 0 SEEN /hpf [facility] Nitrite Test strip Ql (U)Ord ered By: Van Alexandra on 04-27-2023 Nitrite Ql (U) Negative Negative [facility] No Panel InformationOrdered By: Van Alexandra on 04-27-2023 Estimated Creatinine Clearance Calc 46.54 ml/min [facility] Estimated GFR (MDRD) Amer 68 mL/min >60 [facility] Comment on above: GFR Calc Estimated GFR (MDRD) Non-Af Amer 57 mL/min >60 [facility] Comment on above: Non- GFR Calc Platelets bldOrdered By: Francisco Alexandra on 04-27-2023 Platelets (Bld) [#/Vol] 185 10*3/uL 150-450 [facility] Protein Test strip Ql (U)Ord ered By: Van Alexandra on 04-27-2023 Protein Ql (U) 15 mg/dl Negative [facility] Review by pathologistOrdered By: Van Alexandra on 04-27-2023 Pathologist review Lion (Unsp spec) [Interp] May foll [facility] Serum or plasma albumin lucho urement (mass/volume)Ordered By: Van Alexandra on 04-27-2023 Albumin [Mass/Vol] 3.3 g/dL 3.2-5.0 [facility] Serum or plasma calcium lucho urement (mass/volume)Ordered By: Van Alexandra on 04-27-2023 Calcium [Mass/Vol] 9.3 mg/dL 8.5-10.1 [facility] Serum or plasma creatinine m easurement (mass/volume)Ordered By: Van Alexandra on 04-27-2023 Creatinine [Mass/Vol] 1.05 mg/dL 0.55-1.02 [facility] Comment on above: The validity of the calculated GFR & GFRAA in patients over 70 years has not been determined. Clinical correlation is essential. Serum or plasma urea nitroge n measurement (mass/volume)Ordered By: Van Alexandra on 04-27-2023 Urea nitrogen [Mass/Vol] 24 mg/dL 7-18 [facility] Squamous epithelial cells de tection in urine sediment by light microscopyOrdered By: Van Alexandra on 04-27-2023 Epithelial cells.squamous LM Ql (Urine sed) 0 SEEN /hpf 5-10 [facility] Thin prep Papanicolaou smear with manual screeningOrdered By: Van Alexandra on 04-27-2023 Thin prep Papanicolaou smear with manual screening 17 U/L 15-37 [facility] Thin prep Papanicolaou smear with manual screening 7 5-15 [facility] Urine blood detectionOrdered By: Van Alexandra on 04-27-2023 RBC Ql (U) 25 /ul Negative [facility] RBC Ql (U) 0 SEEN /hpf 0-5 [facility] Urine clarityOrdered By: Francisco Alexandra on 04-27-2023 Clarity (U) Clear Clear [facility] Urine color determinationOrd ered By: Van Alexandra on 04-27-2023 Color (U) Yellow Yellow [facility] Urine glucose detectionOrder ed By: Van Alexandra on 04-27-2023 Glucose Ql (U) Normal mg/dl Normal [facility] Urine leukocyte esterase det ection by dipstickOrdered By: Van Alexandra on 04-27-2023 Leukocyte esterase Test strip Ql (U) 25 /ul Negative [facility] Urine pHOrdered By: Van stovall on 04-27-2023 pH (U) 6.0 [pH] 5.0 - 8.0 [facility] Urine sediment bacteria coun t by microscopy (number/high power field)Ordered By: Van Alexandra on 04-27-2023 Bacteria LM.HPF (Urine sed) [#/Area] RARE /hpf None Seen [facility] Urine specific gravity measu rementOrdered By: Van Alexandra on 04-27-2023 Specific gravity (U) [Rel density] 1.020 1.002-1.030 [facility] Urobilinogen Auto test strip Ql (U)Ordered By: Van Alexandra on 04-27-2023 Urobilinogen Ql (U) Normal mg/dl Normal [facility] Absolute lymphocyte countOrd ered By: Rula Healy on 03-28-2023 Lymphocytes Auto (Unsp spec) [#/Vol] 0.55 10*3/uL 0.83-4.51 [facility] Basophil percentageOrdered B y: Rula Healy on 03-28-2023 Basophils/100 WBC (Bld) 2.0 % 0-1 [facility] Bilirubin [Mass/Vol] 0.50 mg/dL 0.20-1.00 [facility] Comment on above: For patients on eltr ombopag therapy, use of Dimension [place] TBIL is not recommended. Chloride [Moles/Vol] 110 mmol/L 98-107 [facility] Eosinophils/100 WBC (Bld) 3.3 % 0-5 [facility] Glucose [Mass/Vol] 103 mg/dL 74-106 [facility] Comment on above: Fasting Glucose resu lt from 100 to 125 mg/dL suggests IMPAIRED HOMEOSTASIS per A.D.A. criteria. Neutrophils (Bld) [#/Vol] 2.0 10*3/uL 2.0-7.7 [facility] Neutrophils/100 WBC (Bld) 67.0 % 47-70 [facility] Potassium [Moles/Vol] 3.9 mmol/L 3.5-5.1 [facility] Protein [Mass/Vol] 7.0 g/dL 6.4-8.2 [facility] Sodium [Moles/Vol] 141 mmol/L 136-145 [facility] WBC (Bld) [#/Vol] 3.0 10*3/uL 4.4-11.0 [facility] Blood erythrocytes count (nu mber/volume)Ordered By: Rula Healy on 03-28-2023 RBC (Bld) [#/Vol] 4.20 10*6/uL 4.2-5.4 [facility] Blood hemoglobin measurement (mass/volume)Ordered By: Rula Healy on 03-28-2023 Hemoglobin (Bld) [Mass/Vol] 12.1 g/dL 12.0-15. 0 [facility] Blood lymphocytes/100 leukoc ytesOrdered By: Rula Healy on 03-28-2023 Lymphocytes/100 WBC (Bld) 18.4 % 19-41 [facility] Blood manual differential co mment interpretation (narrative result)Ordered By: Rula Healy on 03-28-2023 Manual differential comment Lion (Bld) [Interp] SCANNED [facility] Comment on above: LYMPHOPENIA NOTED Blood monocytes/100 leukocyt esOrdered By: Rula Healy on 03-28-2023 Monocytes/100 WBC (Bld) 9.0 % 0-10 [facility] Blood platelet mean volumeOr dered By: Rula Healy on 03-28-2023 Platelet mean volume (Bld) [Entitic vol] 11.4 fL 6.2-12.0 [facility] Determination of erythrocyte mean corpuscular volume (MCV)Ordered By: Rula Healy on 03-28-2023 MCV (RBC) [Entitic vol] 91.2 fL 81-99 [facility] Hematocrit Auto (Bld) [Volum e fraction]Ordered By: Rula Healy on 03-28-2023 Hematocrit (Bld) [Volume fraction] 38.3 % 37-47 [facility] Laboratory - Chemistry and C hemistry - challengeOrdered By: Rula Healy on 03-28-2023 ALP [Catalytic activity/Vol] 101 U/L 45-117 [facility] ALT [Catalytic activity/Vol] 24 U/L 13-56 [facility] CO2 [Moles/Vol] 25.0 mmol/L 21.0-32.0 [facility] Globulin (S) [Mass/Vol] 3.4 g/dL 2.2-4.2 [facility] Urea nitrogen/Creatinine [Mass ratio] 19.8 mg/mg 10-20 [facility] Laboratory - Hematology and Cell countsOrdered By: Rula Healy on 03-28-2023 Erythrocyte distribution width (RBC) [Entitic vol] 46.4 fL 35.1-43.9 [facility] Erythrocyte distribution width (RBC) [Ratio] 13.7 % 11.6-14.6 [facility] Immature granulocytes/100 WBC (Bld) 0.300 % 0.0-0.9 [facility] Comment on above: IG% - Immature Granu locytes (promyelocytes, myelocytes and metamyelocytes) > 1% indicates that a LEFT SHIFT is Present. MCH (RBC) [Entitic mass] 28.8 pg 27.0-32.0 [facility] Nucleated RBC/100 WBC (Bld) [Ratio] 0 % 0-5 [facility] MCHC Auto (RBC) [Mass/Vol]Or dered By: Rula Healy on 03-28-2023 MCHC (RBC) [Mass/Vol] 31.6 g/dL 32-36 [facility] No Panel InformationOrdered By: Rula Healy on 03-28-2023 Estimated GFR (MDRD) Amer 76 mL/min >60 [facility] Comment on above: GFR Calc Estimated GFR (MDRD) Non-Af Amer 63 mL/min >60 [facility] Comment on above: Non- GFR Calc Platelets bldOrdered By: Mitch Healy on 03-28-2023 Platelets (Bld) [#/Vol] 207 10*3/uL 150-450 [facility] Review by pathologistOrdered By: Rula Healy on 03-28-2023 Pathologist review Lion (Unsp spec) [Interp] Reviewed [facility] Comment on above: Previous reported re sult: Kelsy olivier Edited by: RGOMAREN on 04/01/23:1207 AMENDED REPORT 04/01/23 1207 PATH REV previously reported as: January Serum or plasma albumin lucho urement (mass/volume)Ordered By: Rula Healy on 03-28-2023 Albumin [Mass/Vol] 3.6 g/dL 3.2-5.0 [facility] Serum or plasma albumin/glob ulin mass ratioOrdered By: [facility] Niraj on 03-28-2023 Albumin/Globulin [Mass ratio] 1.1 {ratio} 0.9-2.4 [facility] Serum or plasma calcium lucho urement (mass/volume)Ordered By: Rula Healy on 03-28-2023 Calcium [Mass/Vol] 9.7 mg/dL 8.5-10.1 [facility] Serum or plasma creatinine m easurement (mass/volume)Ordered By: [facility] Niraj on 03-28-2023 Creatinine [Mass/Vol] 0.96 mg/dL 0.55-1.02 [facility] Comment on above: The validity of the calculated GFR & GFRAA in patients over 70 years has not been determined. Clinical correlation is essential. Serum or plasma urea nitroge n measurement (mass/volume)Ordered By: [facility] Niraj on 03-28-2023 Urea nitrogen [Mass/Vol] 19 mg/dL 7-18 [facility] Thin prep Papanicolaou smear with manual screeningOrdered By: [facility] on [facility]23 Thin prep Papanicolaou smear with manual screening 18 U/L 15-37 [facility] Thin prep Papanicolaou smear with manual screening 6 5-15 [facility] MA MAMMOGRAM SCREENING BILAT ERAL W/TOMOon 02-15-2023 MA MAMMOGRAM SCREENING BILATERAL W/GRETCHEN ORIGINAL FROM: [address] [address] PROCEDURE FOR: [place] [address] Home: PID#: [id number] Exam#: [id number] : 1960 Age: 62 TO: SARAH NG MD [address] [place] [id number] EXAMINATION: SCREENING DIGITAL BILATERAL MAMMOGRAM WITH TOMOSYNTHESIS, 02/12/2023 2:00 pm TECHNIQUE: Screening mammography of the bilateral breasts was performed with tomosynthesis. 2D standard and 3D tomosynthesis combination imaging performed through both breasts in the MLO and CC projection. Computer aided detection was utilized in the interpretation of this exam. COMPARISON: 04/20/2021, 11/23/2019 HISTORY: Breast cancer screening. FINDINGS: BREAST DENSITY: Scattered fibroglandular tissue There is a new 5 mm round circumscribed mass in the right breast at 12 o'clock posterior depth. This is confirmed on additional tomographic views. There are no other significant masses, calcifications, or other findings. IMPRESSION: The new 5 mm round mass in the right breast at 12 o'clock appears indeterminate. A right breast ultrasound is recommended. We will contact the patient to arrange for the exam. BIRADS: MAMMOGRAM BI-RADS: 0: Needs addl evaluation RECALL: immediate RECALL TYPE: Right US LETTER SENT: Abnormal-Needs additional work up BI-RADS 0 Interpreted by: Morris Urrutia MD Preliminary Report By: Morris Urrutia MD Electronically signed By Morris Urrutia MD Dictated Date: 02/14/2023 11:19:49 PM Prelim Date: 02/14/2023 11:27:50 PM Sign Date: 02/14/2023 11:27:50 PM Ordering Provider: SARAH NG Glazier Helper: SEJAL MOREAU RT(R) (M) letter sent: Abnormal-Needs additional work up BI-RADS 0 Mammogram BI-RADS: 0 Indeterminate Normal [facility] ([place]) Culture, urineon 12-25-2022 Bacteria identified Cx Nom (U) Presumptive E. coli [facility] Culture, urineon 12-23-2022 Bacteria identified Cx Nom (U) Presumptive E. coli [facility] Absolute lymphocyte countOrd ered By: Dr. Healy on 10-23-2022 Lymphocytes Auto (Unsp spec) [#/Vol] 0.85 10*3/uL 0.83-4.51 [facility] Basophil percentageOrdered B y: Dr. Healy on 10-23-2022 Basophils/100 WBC (Bld) 1.8 % 0-1 [facility] Bilirubin [Mass/Vol] 0.50 mg/dL 0.20-1.00 [facility] [facility] Comment on above: For patients on eltr ombopag therapy, use of Dimension [place] TBIL is not recommended. Chloride [Moles/Vol] 112 mmol/L 98-107 [facility] Cholesterol [Mass/Vol] 141 mg/dL <200 [facility] Comment on above: <200 mg/dL Desirable 200-240 mg/dL Borderline >240 mg/dL High Risk Eosinophils/100 WBC (Bld) 5.7 % 0-5 [facility] Glucose [Mass/Vol] 147 mg/dL 74-106 [facility] Comment on above: Fasting Glucose resu lt greater than or equal to 126 mg/dL suggests DIABETES MELLITUS per A.D.A. criteria. Neutrophils (Bld) [#/Vol] 2.3 10*3/uL 2.0-7.7 [facility] Neutrophils/100 WBC (Bld) 59.0 % 47-70 [facility] Potassium [Moles/Vol] 3.9 mmol/L 3.5-5.1 [facility] Protein [Mass/Vol] 6.9 g/dL 6.4-8.2 [facility] Sodium [Moles/Vol] 144 mmol/L 136-145 [facility] Triglyceride [Mass/Vol] 123 mg/dL <199 [facility] Comment on above: The drugs N-Acetylcy steine and Metamizole may falsely depress this assay.Serum Triglycerides Reference Interval Normal <150 mg/dL Borderline high 150 - 199 mg/dL High 200 - 499 mg/dL Very High > or = 500 mg/dL WBC (Bld) [#/Vol] 3.9 10*3/uL 4.4-11.0 [facility] Blood erythrocytes count (nu mber/volume)Ordered By: Dr. Healy on 10-23-2022 RBC (Bld) [#/Vol] 4.43 10*6/uL 4.2-5.4 [facility] Blood hemoglobin measurement (mass/volume)Ordered By: Dr. Healy on 10-23-2022 Hemoglobin (Bld) [Mass/Vol] 12.7 g/dL 12.0-15. 0 [facility] Blood lymphocytes/100 leukoc ytesOrdered By: Dr. Healy on 10-23-2022 Lymphocytes/100 WBC (Bld) 21.9 % 19-41 [facility] Blood monocytes/100 leukocyt esOrdered By: Dr. Healy on 10-23-2022 Monocytes/100 WBC (Bld) 11.3 % 0-10 [facility] Blood platelet mean volumeOr dered By: Dr. Healy on 10-23-2022 Platelet mean volume (Bld) [Entitic vol] 11.1 fL 6.2-12.0 [facility] Determination of erythrocyte mean corpuscular volume (MCV)Ordered By: Dr. Healy on 10-23-2022 MCV (RBC) [Entitic vol] 91.9 fL 81-99 [facility] Hematocrit Auto (Bld) [Volum e fraction]Ordered By: Dr. Healy on 10-23-2022 Hematocrit (Bld) [Volume fraction] 40.7 % 37-47 [facility] Laboratory - Chemistry and C hemistry - challengeOrdered By: Dr. Healy on 10-23-2022 ALP [Catalytic activity/Vol] 88 U/L 45-117 [facility] ALT [Catalytic activity/Vol] 22 U/L 13-56 [facility] CO2 [Moles/Vol] 25.0 mmol/L 21.0-32.0 [facility] Free T4 [Mass/Vol] 1.37 ng/dL 0.76-1.46 [facility] Globulin (S) [Mass/Vol] 3.2 g/dL 2.2-4.2 [facility] Urea nitrogen/Creatinine [Mass ratio] 18.9 mg/mg 10-20 [facility] Laboratory - Hematology and Cell countsOrdered By: Dr. Healy on 10-23-2022 Erythrocyte distribution width (RBC) [Entitic vol] 48.1 fL 35.1-43.9 [facility] Erythrocyte distribution width (RBC) [Ratio] 14.1 % 11.6-14.6 [facility] Immature granulocytes/100 WBC (Bld) 0.300 % 0.0-0.9 [facility] Comment on above: IG% - Immature Granu locytes (promyelocytes, myelocytes and metamyelocytes) > 1% indicates that a LEFT SHIFT is Present. MCH (RBC) [Entitic mass] 28.7 pg 27.0-32.0 [facility] Nucleated RBC/100 WBC (Bld) [Ratio] 0 % 0-5 [facility] MCHC Auto (RBC) [Mass/Vol]Or dered By: Dr. Healy on 10-23-2022 MCHC (RBC) [Mass/Vol] 31.2 g/dL 32-36 [facility] No Panel InformationOrdered By: Dr. Healy on 10-23-2022 Estimated GFR (MDRD) Amer 82 mL/min >60 [facility] Comment on above: GFR Calc Estimated GFR (MDRD) Non-Af Amer 68 mL/min >60 [facility] Comment on above: Non- GFR Calc Thyroid Stimulating Hormone (TSH) 0.48 uIU/mL 0.358-3.74 [facility] Urine Microalbumin/Creatinine Ratio 18.5 mg/g CRE <30 [facility] Platelets bldOrdered By: Dr. Healy on 10-23-2022 Platelets (Bld) [#/Vol] 206 10*3/uL 150-450 [facility] Serum or plasma albumin lucho urement (mass/volume)Ordered By: Dr. Healy on 10-23-2022 Albumin [Mass/Vol] 3.7 g/dL 3.2-5.0 [facility] Serum or plasma albumin/glob ulin mass ratioOrdered By: Dr. Healy on 10-23-2022 Albumin/Globulin [Mass ratio] 1.2 {ratio} 0.9-2.4 [facility] Serum or plasma calcium lucho urement (mass/volume)Ordered By: Dr. Healy on 10-23-2022 Calcium [Mass/Vol] 9.5 mg/dL 8.5-10.1 [facility] Serum or plasma cholesterol in HDL measurement (mass/volume)Ordered By: Dr. Healy on 10-23-2022 Cholesterol in HDL [Mass/Vol] 56 mg/dL >40 [facility] Comment on above: The drugs N-Acetylcy steine and Metamizole may falsely depress this assay. Reference Range HDL <40 mg/dL Low HDL Cholesterol HDL >or= 60 mg/dL High HDL Cholesterol Serum or plasma cholesterol in VLDL measurement (mass/volume)Ordered By: Dr. Healy on 10-23-2022 Cholesterol in VLDL [Mass/Vol] 25 mg/dL 5-40 [facility] Serum or plasma creatinine m easurement (mass/volume)Ordered By: Dr. Healy on 10-23-2022 Creatinine [Mass/Vol] 0.90 mg/dL 0.55-1.02 [facility] Comment on above: The validity of the calculated GFR & GFRAA in patients over 70 years has not been determined. Clinical correlation is essential. Serum or plasma low density lipoprotein (LDL) cholesterol measurement (mass/volume)Ordered By: Dr. Healy on 10-23-2022 Cholesterol in LDL [Mass/Vol] 60 mg/dL 0-130 [facility] Serum or plasma urea nitroge n measurement (mass/volume)Ordered By: Dr. Healy on 10-23-2022 Urea nitrogen [Mass/Vol] 17 mg/dL 7-18 [facility] Thin prep Papanicolaou smear with manual screeningOrdered By: Dr. Healy on 10-23-2022 Thin prep Papanicolaou smear with manual screening 15 U/L 15-37 [facility] Thin prep Papanicolaou smear with manual screening 7 5-15 [facility] Thin prep Papanicolaou smear with manual screening 16.7 mg/L NO RANGE EST. [facility] Urine creatinine measurement (mass/volume)Ordered By: Dr. Healy on 10-23-2022 Creatinine (U) [Mass/Vol] 90.30 mg/dL NO RANGE EST. [facility] Absolute lymphocyte counton 05-01-2022 Lymphocytes Auto (Unsp spec) [#/Vol] 0.77 10*3/uL 0.83-4.51 [facility] Work Phone: Basophil percentageon 2021 Basophils/100 WBC (Bld) 1.2 % 0-1 [facility] Work Phone: Bilirubin [Mass/Vol] 0.50 mg/dL 0.20-1.00 [facility] Work Phone: Comment on above: For patients on eltr ombopag therapy, use of Dimension [place] TBIL is not recommended. Chloride [Moles/Vol] 109 mmol/L 98-107 [facility] Work Phone: [phone] Eosinophils/100 WBC (Bld) 2.9 % 0-5 [facility] Work Phone: [phone] Glucose [Mass/Vol] 113 mg/dL 74-106 [facility] Work Phone: Comment on above: Fasting Glucose resu lt from 100 to 125 mg/dL suggests IMPAIRED HOMEOSTASIS per A.D.A. criteria. Neutrophils (Bld) [#/Vol] 2.2 10*3/uL 2.0-7.7 [facility] Work Phone: [phone] Neutrophils/100 WBC (Bld) 64.6 % 47-70 [facility] Work Phone: [phone] Potassium [Moles/Vol] 3.9 mmol/L 3.5-5.1 [facility] Work Phone: [phone] Protein [Mass/Vol] 6.8 g/dL 6.4-8.2 [facility] Work Phone: [phone] Sodium [Moles/Vol] 140 mmol/L 136-145 [facility] Work Phone: WBC (Bld) [#/Vol] 3.5 10*3/uL 4.4-11.0 [facility] Work Phone: [phone] Blood erythrocytes count (nu mber/volume)on 05-01-2022 RBC (Bld) [#/Vol] 4.28 10*6/uL 4.2-5.4 [facility] Work Phone: [phone] Blood hemoglobin measurement (mass/volume)on 05-01-2022 Hemoglobin (Bld) [Mass/Vol] 12.4 g/dL 12.0-15. 0 [facility] Work Phone: [phone] Blood lymphocytes/100 leukoc yteson 05-01-2022 Lymphocytes/100 WBC (Bld) 22.3 % 19-41 [facility] Work Phone: Blood manual differential co mment interpretation (narrative result)on 05-01-2022 Manual differential comment Lion (Bld) [Interp] SCANNED [facility] Work Phone: Blood monocytes/100 leukocyt eson 05-01-2022 Monocytes/100 WBC (Bld) 8.7 % 0-10 [facility] Work Phone: Blood platelet mean volumeon 05-01-2022 Platelet mean volume (Bld) [Entitic vol] 12.7 fL 6.2-12.0 [facility] Work Phone: Determination of erythrocyte mean corpuscular volume (MCV)on 05-01-2022 MCV (RBC) [Entitic vol] 89.7 fL 81-99 [facility] Work Phone: Hematocrit Auto (Bld) [Volum e fraction]on 05-01-2022 Hematocrit (Bld) [Volume fraction] 38.4 % 37-47 [facility] Work Phone: Laboratory - Chemistry and C hemistry - challengeon 05-01-2022 ALP [Catalytic activity/Vol] 72 U/L 45-117 [facility] Work Phone: ALT [Catalytic activity/Vol] 22 U/L 13-56 [facility] Work Phone: CO2 [Moles/Vol] 25.0 mmol/L 21.0-32.0 [facility] Work Phone: Globulin (S) [Mass/Vol] 3.1 g/dL 2.2-4.2 [facility] Work Phone: Urea nitrogen/Creatinine [Mass ratio] 20.3 mg/mg 10-20 [facility] Work Phone: Laboratory - Hematology and Cell countson 05-01-2022 Erythrocyte distribution width (RBC) [Entitic vol] 43.8 fL 35.1-43.9 [facility] Work Phone: Erythrocyte distribution width (RBC) [Ratio] 13.3 % 11.6-14.6 [facility] Work Phone: Immature granulocytes/100 WBC (Bld) 0.300 % 0.0-0.9 [facility] Work Phone: Comment on above: IG% - Immature Granu locytes (promyelocytes, myelocytes and metamyelocytes) > 1% indicates that a LEFT SHIFT is Present. MCH (RBC) [Entitic mass] 29.0 pg 27.0-32.0 [facility] Work Phone: Nucleated RBC/100 WBC (Bld) [Ratio] 0 % 0-5 [facility] Work Phone: MCHC Auto (RBC) [Mass/Vol]on 05-01-2022 MCHC (RBC) [Mass/Vol] 32.3 g/dL 32-36 [facility] Work Phone: No Panel Informationon 05-01 Estimated GFR (MDRD) Amer 78 mL/min >60 [facility] Work Phone: Comment on above: GFR Calc Estimated GFR (MDRD) Non-Af Amer 65 mL/min >60 [facility] Work Phone: Comment on above: Non- GFR Calc Platelets bldon 05-01-2022 Platelets (Bld) [#/Vol] 112 10*3/uL 150-450 [facility] Work Phone: Serum or plasma albumin lucho urement (mass/volume)on 05-01-2022 Albumin [Mass/Vol] 3.7 g/dL 3.2-5.0 [facility] Work Phone: Serum or plasma albumin/glob ulin mass ratioon 05-01-2022 Albumin/Globulin [Mass ratio] 1.2 {ratio} 0.9-2.4 [facility] Work Phone: Serum or plasma calcium lucho urement (mass/volume)on 05-01-2022 Calcium [Mass/Vol] 9.5 mg/dL 8.5-10.1 [facility] Work Phone: Serum or plasma creatinine m easurement (mass/volume)on 05-01-2022 Creatinine [Mass/Vol] 0.94 mg/dL 0.55-1.02 [facility] Work Phone: Comment on above: The validity of the calculated GFR & GFRAA in patients over 70 years has not been determined. Clinical correlation is essential. Serum or plasma urea nitroge n measurement (mass/volume)on 05-01-2022 Urea nitrogen [Mass/Vol] 19 mg/dL 7-18 [facility] Work Phone: Thin prep Papanicolaou smear with manual screeningon 05-01-2022 Thin prep Papanicolaou smear with manual screening 18 U/L 15-37 [facility] Work Phone: Thin prep Papanicolaou smear with manual screening 6 5-15 [facility] Work Phone: Vital Signs Date Time Vital Sign Value Performing Clinician Facility 04-27-2023 03:11-0400 Diastolic blood pressure 68 mm[Hg] [facility] 04-27-2023 03:11-0400 Heart rate 79 /min [facility] 04-27-2023 03:11-0400 Respiratory rate 18 /min [facility] 04-27-2023 03:11-0400 SaO2% (BldA) [Mass fraction] 98 % [facility] 04-27-2023 03:11-0400 Systolic blood pressure 123 mm[Hg] [facility] 04-27-2023 02:23-0400 Body temperature 102.2 [degF] [facility] 04-27-2023 00:21-0400 Body height 160.02 cm [facility] 04-27-2023 00:21-0400 Body mass index (BMI) [Ratio] 37.5 kg/m2 [facility] 04-27-2023 00:21-0400 Body weight 96.2 kg [facility] Encounters Encounter Date Encounter Type Care Provider Facility Start: 11-05-2024 Encounter for genera l adult medical examination without abnormal findings Sarah Gerardosteven [facility] Start: 10-18-2024 End: [facility] Start: 08-27-2024 End: 08-27-[facility] Start: 05-21-2024 End: 05-21-2024 ambulatory [facility] Facility:[facility] Start: 05-18-2024 ambulatory [facility] Facility: [facility] Start: 05-12-2024 End: 05-12-2024 ambulatory [facility] Facility:[facility] Start: 04-28-2024 End: 04-28-2024 ambulatory [facility] Facility:[facility] Start: 04-15-2024 End: 04-15-2024 ambulatory [facility] Facility:[facility] Start: 04-13-2024 End: 04-13-2024 ambulatory [facility] Facility:[facility] Start: 03-16-2024 End: 03-16-2024 ambulatory Rula Healy Facility:[facility] Start: 10-28-2023 End: 10-28-2023 ambulatory [facility] Work Phone: Start: 10-28-2023 End: 10-28-2023 Discharged Recurring [facility] Work Phone: Start: 10-14-2023 Registered Recurring [facility] Work Phone: Start: 10-10-2023 End: 10-10-2023 ambulatory [facility] Work Phone: Start: 10-10-2023 End: 10-10-2023 Patient encounter procedure [facility] Work Phone: Start: 09-22-2023 End: 09-22-2023 Patient encounter procedure [facility] Work Phone: Start: 04-27-2023 End: 04-27-2023 [facility] Start: 03-28-2023 End: 03-28-2023 ambulatory [facility] Work Phone: Start: 03-28-2023 End: 03-28-2023 Patient encounter procedure [facility] Work Phone: Start: 02-18-2023 ambulatory SARAH JUSTIN Facility: B Start: 02-12-2023 End: 02-13-2023 ambulatory SARAH JUSTIN Facility:B Start: 02-12-2023 End: 02-12-2023 Patient encounter procedure SARAH NG [facility] Start: 12-23-2022 End: 12-23-2022 [facility] Start: 12-16-2022 End: 12-16-2022 ambulatory [facility] Work Phone: Start: 12-16-2022 End: 12-16-2022 [facility] Start: 10-23-2022 End: 10-23-2022 ambulatory [facility] Work Phone: Start: 10-23-2022 End: 10-23-2022 [facility] Start: 05-01-2022 End: 05-01-2022 Patient encounter procedure [facility] Procedures Date Procedure Procedure Detail Performing Clinician Start: 04-27-2023 SARS-CoV-2 & FLU Antigen (Rapid) Start: 04-27-2023 Plain chest X-ray Start: 12-23-2022 Urine culture Start: 12-16-2022 Plain x-ray of hand Start: 04-19-2013 Ganglion cyst of rig ht hand (disorder) SARAH NG Start: 09-30-2012 Lumpectomy of breast CAVAZOS NNAH MIEDEL Comment on above: lt-cancer Hernia repair SARAH NG Comment on above: 1997 Laboratory test resu lt abnormal Abnormal laboratory test Urine culture Plan of Treatment Date Care Activity Detail Author Patient Education ED Fever Contr ol (Adult) ED Viral Syndrome (Adult) [facility] Work Phone: Patient referral [facility] Work Phone: Immunizations Immunization Date Immunization Notes Care Provider [facility] 04-05-2020 tetanus toxoid, redu taj diphtheria toxoid, and acellular pertussis vaccine, adsorbed SARAH NG [facility] 04-05-2020 zoster vaccine recombinant SARAH NG [facility] 07-22-2019 influenza, injectabl e, quadrivalent, preservative free; Translations: [Fluarix PF Quadrivalent ] SARAH NG [facility] 06-03-2018 influenza virus vacc ine, unspecified formulation SARAH NG [facility] 06-03-2018 pneumococcal polysaccharide vaccine, 23 valent SARAH CARPIOEDSTEVEN [facility] 05-16-2018 influenza virus vacc ine, unspecified formulation SARAH CARPIOEDSTEVEN [facility] 05-16-2018 pneumococcal polysaccharide vaccine, 23 valent SARAH MIEDEL [facility] 06-05-2017 influenza virus vacc ine, unspecified formulation SARAH CARPIOEDEL [facility] 06-28-2016 influenza virus vacc ine, unspecified formulation SARAH MIEDEL [facility] 06-14-2015 influenza virus vacc ine, unspecified formulation SARAH MIEDEL [facility] 06-29-2014 influenza virus vacc ine, unspecified formulation SARAH MIEDEL [facility] 07-01-2013 influenza virus vacc ine, unspecified formulation SARAH MIEDEL [facility] 07-24-2012 influenza virus vacc ine, unspecified formulation SARAH MIEDEL [facility] 07-12-2011 influenza virus vacc ine, unspecified formulation SARAH MIEDEL [facility] 07-02-2010 influenza virus vacc ine, unspecified formulation SARAH MIEDEL [facility] Payers Date Payer Category Payer Self-pay [id number] 2023 Unknown [id number] 1960 Unknown [id number] 2.16.8 [id number] 1960 Unknown [id number] 2.16.8 [id number] Unknown [id number] 2.16.8 [id number] Unknown [id number] 2.16.8 [id number] Unknown [id number] 2.16.8 [id number] Unknown [id number] 2.16.8 [id number] Unknown [id number] 2.16.8 [id number] Unknown [id number] 2.16.8 [id number] Unknown [id number] 2.16.8 [id number] Unknown [id number] 2.16.8 [id number] Unknown [id number] 2.16.8 [id number] Unknown [id number] 2.16.8 [id number] Social History Date Type Detail Facility Start: 07-27-2020 End: 04-27-2023 Tobacco smoking status NHIS Unknown if ever smoked [facility] Start: 1960 Sex Assigned At Female [facility] Start: 11-18-2019 Tobacco smoking status Never s moked tobacco (finding) [facility] Mental Status Date Assessment Result Facility 04-27-2023 Cognitive function Level Of Cons ciousness Awake;Alert;Appropriate;Follow s Commands [facility] Work Phone: Discharge summary 12-23-2023 Note Date & Type Note Facility 12-23-2023 Discharge summary Note Date/Time December 23, 2023 9:10 am [facility] Physical [facility] [place] [address] / REHABILITATION SERVICES DISCHARGE SUMMARY MR#: [id number] Acct: [id number] Name: IRAIDA SHORT Rep #: [id number] : 1960 63 From: Mayo Wick Referring Dr.: CAROLINE Estrada Status: REG RCR Insurance: [employer] Patient Information Patient Information: IRAIDA SHORT was seen in my office for initial evaluation on 09/29/23. The following Plan of Care was established for this patient: POC Established Initial Frequency: 1-2x /Week Initial Duration: 6 Weeks Anticipated Interventions Patient/Client Instruction: Educate patient on: Condition and Plan of Care For the Purpose of:: To decrease pain, To decrease swelling/inflammation, To increase ROM, To improve ability to perform ADL's, To increase tolerance to activity/condition/position, To improve performance and independence with ADL's,To improve gait and locomotor functions, To improve health of tissue, To decrease soft tissue restriction, To increase flexibility/ROM, To prevent re-injury and To improve ability to perform tasks related to life management Therapeutic Exercise to Include: Strength training and Flexibilty training For the Purpose of:: To decrease pain, To decrease swelling/inflammation, To increase ROM, To improve nutrient delivery to tissue, To improve muscle performance and motor function, To decrease soft tissue restriction, To increase flexibility/ROM, To assume or resume ADL's, To improve safety, To improve ability to perform tasks related to life management and To improve tolerance to ADL's Manual Therapy Techniques to Include: Mobilization, Passive ROM, Functional dry needling and Soft tissue mobilization For the Purpose of:: To decrease pain, To decrease swelling/inflammation, To increase ROM, To improve ability to perform ADL's, To improve health of tissue, To decrease soft tissue restriction and To increase flexibility/ROM Iontophoresis (with Dexamethozone, with Acetic acid): Yes Functional electric stimulation: Yes TENS: Yes Cryotherapy (ice pack, ice massage): Yes For the Purpose of:: To decrease pain, To decrease swelling/inflammation, To increase ROM, To increase tolerance to activity/condition/position and To improve tolerance to ADL's Last Seen Last Seen: This patient was last seen in our office 10/28/23. Pertinent comments regardingtheir Physical therapy will appear below: Pt. was seen for her L ankle pain. She had been improving, but at our last visitshe was having a little bit more soreness. She was to trial her exercises on herown and follow up with PT if not doing better. She has not been back to PT in ~2months and will be DC at this point in time. At this point I will be discontinuing this patient from physical therapy. I would be happy to see this patient again in the future if found appropriate by the physician. Thank you! Mayo Marcus, DPT Balance/Gait/Functional tests Balance/Special Test Scores Lower Extremity Functional Score: 56 <Electronically signed by Mayo Marcus DPT> 12/23/23 0910 CC: CAROLINE Estrada; Dr. Sarah Ng MD ~ CLS Signed [facility] Work Phone: Evaluation + Plan note Note Date & Type Note Facility Evaluation + Plan note No data available for this section [facility] Evaluation note Note Date & Type Note Facility Evaluation note No assessment information availa ble [facility] Work Phone: Hospital Discharge instructions Note Date & Type Note Facility Hospital Discharge instructions No data available for this section [facility] Discharge instructions Note Date & Type Note Facility Hospital Discharge instructions Additional Instructions Your work-up today indicates you have a viral illness causing your fever. Symptoms for this will typically last 3 to 7 days. Continue to take naproxen and/or Tylenol for fever control and return to the ER should you have any further concerns or worsening of symptoms. [facility] Work Phone: Progress note Note Date & Type Note Facility Progress note No data available for this section [facility] Family History No Family History Records Found Relationship Condition Age at Onset Recorded Date/T aydee sister Malignant neoplasm of breast Unknown Diabetes mellitus Unknown aunt Malignant neoplasm of breast Unknown mother Bipolar I disorder Unknown mother Malignant neoplasm of lung Unknown father Congestive heart failure Unknown Pulmonary emphysema Unknown Chronic obstructive pulmonary disease Unk nown Hypertension Unknown Chief Complaint and Reason for Visit Chief Complaint XRAY- BOTH HANDS Chief Complaint XRAY- BOTH HANDS PAIN- COPY PCP Chief Complaint PAIN- COPY PCP tremors Chief Complaint LT FOOT PAIN. RX HER E Summary Purpose Advance Directives No Advanced Directives Records Found Advance Directive Response Recorded Date/ Time Living Will No April 27 3 1:35am Power of Laundry Machine Tender No April 27 023 1:35am Advance Directive Response Recorded Date/ Time Living Will No April 27 3 12:35am Power of Laundry Machine Tender No [place] [address], 2 023 12:35am Additional Source Comments Goals (unrecognized section and content) Goals may be documented in a n alternate sectionGoals may be documented in an alternate sectionGoals may be documented in an alternate section No data available for this sectionGoals may be documented in an alternate sectionGoals may be documented in an alternate sectionGoals may be documented in an alternate sectionGoals may be documented in an alternate section Care Teams (unrecognized sec tion and content) Team Status: Active Member Role Status Dates Hannah Boyd PHARMACY AFFAIRS ASSISTANT, PHARMACY AFFAIRS ASSISTANT-C Family Provider Active Dr. Sarah Ng MD Primary Care Provider Active Team Status: Inactive Member Role Status Dates Dr. Sarah Ng MD Primary Care Provider Active Dr. Rula Healy MD Attending Provider, Referring Provider Active Team Status: Inactive Member Role Status Dates Dr. Sarah Ng MD Primary Care Provider Active Dr. Don Blackwell DO Attending Provider, Referring P elvin Active Team Status: Active Member Role Status Dates Dr. Sarah Ng MD Primary Care Provider Active EDELMIRA COLES Attending Provider Active Team Status: Inactive Member Role Status Dates Dr. Sarah Ng MD Primary Care Provider Active EDELMIRA COLES Attending Provider Active Team Status: Inactive Member Role Status Dates Dr. Sarah Ng MD Primary Care Provider Active Dr. Van Alexandra DO Emergency Provider Active Team Status: Active Member Role Status Dates Dr. Sarah Ng MD Primary Care Provider Active Dr. Sumit Estrada DPM Attending Provider Active Team Status: Inactive Member Role Status Dates Dr. Sarah Ng MD Primary Care Prov ider, Attending Provider, Referring Provider Active Team Status: Inactive Member Role Status Dates Dr. Sarah Ng MD Primary Care Provider Active Dr. Sumit Estrada DPM Attending Provider Active INFORMATION SOURCE (unrecogn ized section and content) DATE CREATED AUTHOR 02/23/2023 [facility] ([place]) DATE CREATED AUTHOR AUTHOR'S ORGANIZ ATION 11/07/2024 [facility] FOR RECORDS PERTAINING TO PATIENTS WHO ARE [...] BE BASED ON THE PRIMARY CLINICAL RECORDS. [facility] [employer] [facility]. provides no warranty or guarantee of the accuracy or completeness of information in this document.
== END | disposition home or self-care (01) ==
LOC: MTLAB 09:05
PROVIDERS: PCP Family Medicine; Referring Provider Internal Medicine Rheumatology; Visit Provider Internal Medicine Rheumatology
DX: M06.4 Inflammatory polyarthropathy (principal); R76.8 Other specified abnormal immunological findings in serum; Z79.899 Other long term (current) drug therapy
CPT/HCPCS: 36415; 80053; 85025

== ENCOUNTER → 2025-03-30 | Outpatient (CLI) | payer BC, SELFPAY ==
[2025-03-30 15:56] LABS: Hepatitis C Antibody Nonreactive (Nonreactive)
== END | disposition home or self-care (01) ==
LOC: MTLAB 10:47
PROVIDERS: PCP Family Medicine; Referring Provider Physician Assistant; Visit Provider Physician Assistant
DX: L43.8 Other lichen planus (principal)
CPT/HCPCS: 36415; 86803

== ENCOUNTER → 2025-04-12 | Outpatient (CLI) | payer BC, SELFPAY ==
[2025-04-12 16:05] LABS: Creatinine, Urine (random) 61.30 mg/dL (28.00-217.00); Microalbumin,Random Urine < 12.0 mg/L (<20 mg/L)
[2025-04-15 15:08] LABS: Age Gdln ACOG Testing 30-65 (.); HPV APTIMA, High Risk Negative (Negative)
== END | disposition home or self-care (01) ==
LOC: LABSPEC 13:11
PROVIDERS: PCP Family Medicine; Visit Provider Family Medicine
DX: E11.69 Type 2 diabetes mellitus with other specified complication (principal); E78.5 Hyperlipidemia, unspecified; Z12.4 Encounter for screening for malignant neoplasm of cervix
CPT/HCPCS: 82043; 82570; 87624; 88175; G0145